=== PATIENT | male | born 1955 | race Caucasian/White ===

== ENCOUNTER 2020-07-02 09:06 | Outpatient (CLI) | payer MEDICARE, SELFPAY ==
--- NOTE | ~2020-07-02 | XR_ITS ---
XR knee LT 3V 07/02/2020 09:37 Indication: Left knee pain Procedure: 3 views left knee Comparison: No prior studies for comparison. Findings: Mild osteoarthritis of the left knee. No fracture or traumatic malalignment. No significant joint effusion. No radiopaque foreign bodies. Impression: 1: Mild osteoarthritis of the left knee. Reviewed, dictated and finalized at location A. Impression: 1: Mild osteoarthritis of the left knee.
--- NOTE | ~2020-07-02 | XR_ITS ---
XR knee RT 3V DATE: 07/02/2020 09:37 INDICATION: Right knee pain TECHNIQUE: AP, lateral, sunrise views COMPARISON: None FINDINGS: No fracture or dislocation or joint effusion. No periosteal reaction or bone destruction. J oint spaces are well preserved. No radiopaque intra-articular loose body or chondrocalcinosis. IMPRESSION: Negative Reviewed, dictated and finalized at location A. IMPRESSION: Negative
== END 2020-07-02 09:07 | disposition home or self-care (01) ==
LOC: ANHIMG 09:14
PROVIDERS: PCP Internal Medicine; Visit Provider Internal Medicine
DX: M17.12 Unilateral primary osteoarthritis, left knee (principal); M25.561 Pain in right knee
CPT/HCPCS: 73562

== ENCOUNTER 2020-07-09 10:39 | Outpatient (CLI) | payer MEDICARE, SELFPAY ==
--- NOTE | ~2020-07-09 | US_ITS ---
US retroperitoneal comp 07/09/2020 11:22 Procedure: Realtime transabdominal ultrasound of the kidneys and bladder. Indication: Chronic kidney disease Comparison: No prior studies for comparison. Findings: Renal echotexture is normal bilaterally without hydronephrosis or renal calculus.. There is a 7.8 cm cyst of the left kidney at the lower pole. The right kidney measures 11 cm and left kidney measures 11.1 cm. Bladder within normal limits. Impression: 1: 7.8 cm left renal cyst. Reviewed, dictated and finalized at location B. Impression: 1: 7.8 cm left renal cyst.
== END 2020-07-09 10:40 | disposition home or self-care (01) ==
LOC: ANHIMG 10:47
PROVIDERS: PCP Internal Medicine; Visit Provider Internal Medicine
DX: N18.9 Chronic kidney disease, unspecified (principal); N28.1 Cyst of kidney, acquired
CPT/HCPCS: 76770

== ENCOUNTER 2021-07-24 16:14 | Outpatient (CLI) | payer MEDICARE, SELFPAY ==
--- NOTE | ~2021-07-24 | US_ITS ---
EXAMINATION: US renal BI DATE: 07/24/2021 16:56 INDICATION: Chronic kidney disease TECHNIQUE: Multiple grayscale and Doppler ultrasound images of the kidneys were obtained. COMPARISON: 07/09/2020 FINDINGS: The right kidney measures 11.2 x 4.2 x 5.9 cm. The left kidney measures 13.2 x 6.0 x 6.0 cm and contains an 8.1 cm cyst. The kidneys demonstrate normal parenchymal echogenicity. Prostatomegaly is noted. There is no hydronephrosis. The bladder is normal. IMPRESSION: 1. Unremarkable kidneys without hydronephrosis. Reviewed, dictated and finalized at location A.
== END 2021-07-24 16:15 | disposition home or self-care (01) ==
LOC: ANHIMG 16:18
PROVIDERS: PCP Internal Medicine; Visit Provider Internal Medicine Nephrology
DX: N18.31 Chronic kidney disease, stage 3a (principal)
CPT/HCPCS: 76775

== ENCOUNTER 2021-08-08 09:41 | Outpatient (CLI) | payer MEDICARE, SELFPAY ==
--- NOTE | ~2021-08-08 | US_ITS ---
EXAMINATION: US abdomen complete EXAM DATE: 08/08/2021 10:23 INDICATION: R10.9 - Unspecified abdominal pain. LLQ pain. TECHNIQUE: Multiple grayscale and Doppler images of the complete abdomen were obtained (by a technolo gist who performed the scan) and subsequently reviewed. Correlation made to kidney ultrasound . FINDINGS: The abdominal aorta is normal in caliber. Visualized portion IVC is patent. The pancreatic head a nd body are normal in appearance. The pancreatic tail is not visualized. The liver has normal echogenicity and contour. There are no focal liver lesions identified. There is no evidence of intrahepatic biliary duct dilation. Portal venous flow was seen in the hepatopedal , normal direction and has normal Doppler waveform. Common bile duct measures 5 mm, which is normal. The gallbladder wall is normal in thickness, with ex pected amount of distention. No sonographic evidence of pericholecystic fluid. There is gallbladder adenomyomatosis. There may be some echogenic debris, but no shadowing, no cholelithiasis. Some gallb ladder wall thickening at the fundus, probably pharyngeal cap. Technologist performing exam reports patient did not demonstrate sonographic Kan's sign. Please note that this sign is less reliable i n patients who have received pain medication. Right kidney: There is normal contour and echogenicity. It measures 11.7 x 5.0 x 5.4 centimeters. There are no focal renal lesions identified. There is no hydronephrosis. Left kidney: There is normal contour and echogenicity. It measures 12.8 x 5.6 x 6.7 centimeters. Th ere is left perihilar cyst measuring up to 8 cm. There is no hydronephrosis. The spleen measures 11.8 centimeters and is morphologically normal. IMPRESSION: 1. Gallbladder adenomyomatosis, pharyngeal cap. 2. Large left renal perihilar cyst. Reviewed, dictated and finalized at location B.
== END 2021-08-08 09:42 | disposition home or self-care (01) ==
LOC: ANHIMG 09:44
PROVIDERS: PCP Internal Medicine; Visit Provider Internal Medicine
DX: R10.9 Unspecified abdominal pain (principal); D13.5 Benign neoplasm of extrahepatic bile ducts; N28.1 Cyst of kidney, acquired
CPT/HCPCS: 76700

== ENCOUNTER 2021-09-08 01:17 | Day surgery (SDC) | payer MEDICARE, SELFPAY ==
[2021-08-26 11:50] VITALS: BMI 27.1
[2021-09-08 06:14] VITALS: BP 111/63; PULSE 73; RESP 18; TEMP 36.1; O2SAT 95
[2021-09-08] MEDS: LACTATED RINGERS 1,000 ML 150 ML IV CONT (06:17)
--- NOTE | 2021-09-08 07:04 | WPDANESEPPF ---
Anes - Initial Pre Proc Eval Procedure: Operation Date: 09/08/21 07:30 Proposed Procedures p Screening Colonoscopy - Billy Buck MD Date/Time: 09/08/21 07:04 Surgeon: Billy Buck MD Pre Op Diagnosis: neoplasm screening Patient Data Age: 65 Gender: M Height: 1.83 m Weight: 99.3 kg Last Vital Signs Temp 36.1 C L 09/08/21 06:14 Pulse 73 09/08/21 06:14 Resp 18 09/08/21 06:14 BP 111/63 09/08/21 06:14 Pulse Ox 95 09/08/21 06:14 Allergies Allergy/AdvReac Type Severity Reaction Status Date / Time paroxetine Allergy Mild RASH Verified 09/08/21 06:11 Penicillins Allergy Mild Hives Verified 09/08/21 06:11 Home Medications Medication Instructions Recorded Confirmed Type multivitamin 1 tablet PO DAILY 10/26/19 09/08/21 History ascorbic acid (vitamin C) 500 mg 500 mg PO DAILY 01/03/21 09/08/21 History tablet calcium carbonate 500 mg calcium 500 mg PO DAILY 01/03/21 09/08/21 History (1,250 mg) tablet zinc 50 mg tablet 50 mg PO DAILY 07/18/21 09/08/21 History aspirin [Adult Low Dose Aspirin] 81 mg PO DAILY 08/26/21 09/08/21 History carvedilol 12.5 mg PO BID 08/26/21 09/08/21 History levocetirizine [Xyzal] 5 mg PO DAILY 08/26/21 09/08/21 History lisinopril 20 mg PO BID 08/26/21 09/08/21 History rosuvastatin 20 mg PO DAILY 08/26/21 09/08/21 History umeclidinium-vilanterol [Anoro 1 inh INHALATION DAILY 08/26/21 09/08/21 History Ellipta] Patient hx anesthesia problems: none Family hx anesthesia problems: none Results Review: All pre-operative results and documents have been reviewed as part of the pre-operative evaluation. [facility] Past Medical History Medical History (Updated 09/08/21 @ 07:05 by Trevon Braden MD) Anxiety Chronic obstructive pulmonary disease CKD (chronic kidney disease) Esophageal web Essential hypertension History of tobacco use Hyperlipidemia IFG (impaired fasting glucose) Obesity (BMI 30-39.9) Osteoarthritis Pulmonary emphysema Recurrent major depressive disorder, in partial remission Family History Family History Sibling Family history of multiple sclerosis Mother Family history of primary malignant neoplasm of liver Patient's mother is Father Family history of congestive heart failure Patient's father is Social History Social History (Updated 07/18/21 @ 08:28 by Nika Gastelum CNA) Smoking packs per day: 1 Smoking cigarettes per day: 20.0 Years smoked: 26 Smoking pack-years: 26.00 Smoking status: Former smoker Tobacco type: cigarettes Second hand tobacco smoke exposure: Yes Smoking end date: 10/25/09 Alcohol intake: current Drinks per week: 4 Substance use: never Substance use type: does not use Living arrangements: with family Spiritual care concerns: No Anes - Eval Final PreProcedure Day of Procedure 09/08/21 07:04 Patient weight: obese Heart: regular rate and rhythm Lungs: clear to auscultation and normal air movement Airway: Mallampati scale class II Neurological: alert and oriented Last oral intake: >/= 8 hours ASA classification: III Emergent: no Anesthetic plan: proceed Anesthesia type and monitoring: general GIVS Results Review: All pre-operative results and documents have been reviewed as part of the pre-operative evaluation. Informed Consent: The patient's anesthetic plan and its attendant risks and benefits were discussed with the patient/family/POA. Questions were solicited and answers provided to the satisfaction of the patient/family/POA.
--- NOTE | 2021-09-08 07:26 | PM.HPGS ---
History of Present Illness History of Present Illness Consent: Risks, benefits, and alternatives have been discussed and questions answered. Patient agrees to proceed with procedure. Chief complaint: neoplasm screening Narrative: Vic Garcia is a 65 year old male here for colon screening, last one 10 years ago. Review of Systems Constitutional: Constitutional: Denies headache(s) and Denies weakness Eyes: Eyes: Denies blurry vision ENT: Reports Normal hearing present, Denies headache(s) and Denies neck pain Cardiovascular: Cardiovascular: Denies chest pain and Denies dyspnea Respiratory: Respiratory: Denies dyspnea Gastrointestinal: Gastrointestinal: Reports no additional gastrointestinal complaints Genitourinary: Genitourinary: Denies dysuria Musculoskeletal: Musculoskeletal: Denies neck pain Integumentary/Breasts: Skin/Breast: Denies dry skin Neurologic: Reports Normal hearing present, Denies headache(s) and Denies weakness Psychiatric: Psychiatric: Denies anxiety Endocrine: Endocrine: Denies change in body appearance Hematologic/Lymphatic: Hematologic/Lymphatic: Denies easy bleeding Allergic/Immunologic: Allergic/Immunologic: Denies urticaria PMFSH Past Medical History Medical History (Updated 09/08/21 @ 07:26 by Billy Buck MD) Anxiety Chronic obstructive pulmonary disease CKD (chronic kidney disease) Colon cancer screening Esophageal web Essential hypertension History of tobacco use Hyperlipidemia IFG (impaired fasting glucose) Obesity (BMI 30-39.9) Osteoarthritis Pulmonary emphysema Recurrent major depressive disorder, in partial remission Family History Family History Sibling Family history of multiple sclerosis Mother Family history of primary malignant neoplasm of liver Patient's mother is Father Family history of congestive heart failure Patient's father is Social History Social History (Updated 07/18/21 @ 08:28 by Nika Gastelum CNA) Smoking packs per day: 1 Smoking cigarettes per day: 20.0 Years smoked: 26 Smoking pack-years: 26.00 Smoking status: Former smoker Tobacco type: cigarettes Second hand tobacco smoke exposure: Yes Smoking end date: 10/25/09 Alcohol intake: current Drinks per week: 4 Substance use: never Substance use type: does not use Living arrangements: with family Spiritual care concerns: No Meds Home Medications and Allergies Home Medications Medication Instructions Recorded Confirmed Type multivitamin 1 tablet PO DAILY 10/26/19 09/08/21 History ascorbic acid (vitamin C) 500 mg 500 mg PO DAILY 01/03/21 09/08/21 History tablet calcium carbonate 500 mg calcium 500 mg PO DAILY 01/03/21 09/08/21 History (1,250 mg) tablet zinc 50 mg tablet 50 mg PO DAILY 07/18/21 09/08/21 History aspirin [Adult Low Dose Aspirin] 81 mg PO DAILY 08/26/21 09/08/21 History carvedilol 12.5 mg PO BID 08/26/21 09/08/21 History levocetirizine [Xyzal] 5 mg PO DAILY 08/26/21 09/08/21 History lisinopril 20 mg PO BID 08/26/21 09/08/21 History rosuvastatin 20 mg PO DAILY 08/26/21 09/08/21 History umeclidinium-vilanterol [Anoro 1 inh INHALATION DAILY 08/26/21 09/08/21 History Ellipta] Allergies Allergy/AdvReac Type Severity Reaction Status Date / Time paroxetine Allergy Mild RASH Verified 09/08/21 06:11 Penicillins Allergy Mild Hives Verified 09/08/21 06:11 Vital Signs Vital Signs - 24 hr 09/08/21 06:14 Temperature 96.9 F L Pulse Rate 73 Respiratory Rate 18 Blood Pressure 111/63 Pulse Oximetry 95 Exam Const: General: comfortable and no acute distress HENMT: General nose exam: Normal nares present Eyes: General: appearance normal, both eyes and all related structures Neck: Neck: no JVD Resp: Auscultation: clear to auscultation bilaterally Cardio: Rate: regular rate Rhythm: regular rhythm GI:
[2021-09-08 07:49] VITALS: BP 104/57; PULSE 64; RESP 19; O2SAT 96
[2021-09-08 07:59] VITALS: BP 103/70; PULSE 62; RESP 16; O2SAT 98
[2021-09-08 08:09] VITALS: BP 106/62; PULSE 60; RESP 18; O2SAT 98
== END 2021-09-08 08:23 | disposition home or self-care (01) ==
PROVIDERS: PCP Internal Medicine; Visit Provider Internal Medicine Gastroenterology
PROC: 0DJD8ZZ Inspection of Lower Intestinal Tract, Via Natural or Artificial Opening Endoscopic (ICD-10-PCS; CPT 45378; principal; 2021-09-08 07:30)
DX: Z12.11 Encounter for screening for malignant neoplasm of colon (principal); K57.30 Diverticulosis of large intestine without perforation or abscess without bleeding; D12.4 Benign neoplasm of descending colon; K64.8 Other hemorrhoids; I12.9 Hypertensive chronic kidney disease with stage 1 through stage 4 chronic kidney disease, or unspecified chronic kidney disease; N18.9 Chronic kidney disease, unspecified; E78.5 Hyperlipidemia, unspecified; J44.9 Chronic obstructive pulmonary disease, unspecified; F41.9 Anxiety disorder, unspecified; F32.4 Major depressive disorder, single episode, in partial remission; Z87.891 Personal history of nicotine dependence; Z79.82 Long term (current) use of aspirin; E66.9 Obesity, unspecified; Z68.29 Body mass index [BMI] 29.0-29.9, adult
CPT/HCPCS: 45380; 45385; 88305; J2001; J2704; J7120

== ENCOUNTER 2022-01-23 10:19 | Outpatient (CLI) | payer MEDICARE, SELFPAY ==
--- NOTE | ~2022-01-23 | XR_ITS ---
XR lumbar spine 6V w bending DATE: 01/23/2022 10:42 INDICATION: Low back pain TECHNIQUE: AP, lateral, coned lateral lumbosacral views. Bilateral oblique views. Weightbearing flexi on and extension lateral views COMPARISON: None FINDINGS: There is normal alignment of the lumbar spine. There is no instability on flexion or extens ion. There is mild to moderate degenerative disc disease at L1-2, L2-3 and L3-4 primarily No fracture or bone destruction, spondylolysis or spondylolisthesis. The lumbar pedicles are intact. The sacroiliac joints are normal. IMPRESSION: Mild to moderate degenerative disc disease Reviewed, dictated and finalized at location A.
== END 2022-01-23 10:20 | disposition home or self-care (01) ==
PROVIDERS: PCP Internal Medicine; Visit Provider Internal Medicine
DX: G89.29 Other chronic pain (principal); M54.50 Low back pain, unspecified; M51.36 Other intervertebral disc degeneration, lumbar region
CPT/HCPCS: 72114

== ENCOUNTER 2022-02-11 10:38 | Outpatient (CLI) | payer MEDICARE, SELFPAY ==
--- NOTE | ~2022-02-11 | XR_ITS ---
EXAMINATION: XR chest 2V EXAM DATE: 02/11/2022 11:00 INDICATION: J44.9 - Extreme Sob X 2days. Former Smoker. Hx Copd TECHNIQUE: Frontal and lateral projections of the chest obtained and reviewed. Comparison is made to prior examination from 01/21/2019. FINDINGS: The lungs are clear. There are no pleural effusions. The cardiomediastinal silhouette is within normal limits. There is no pneumothorax suspected. The bones and soft tissues are unremarkab le. IMPRESSION: No acute cardiopulmonary findings. Reviewed, dictated and finalized at location A.
== END 2022-02-11 10:39 | disposition home or self-care (01) ==
PROVIDERS: PCP Internal Medicine; Visit Provider Internal Medicine
DX: J44.9 Chronic obstructive pulmonary disease, unspecified (principal)
CPT/HCPCS: 71046

== ENCOUNTER 2022-07-22 15:43 | Emergency (ER) | payer MEDICARE, SELFPAY ==
--- NOTE | ~2022-07-22 | XR_ITS ---
EXAMINATION: XR chest 2V DATE: 07/22/2022 16:14 INDICATION: Productive cough and congestion TECHNIQUE: PA and lateral views of the chest were obtained. COMPARISON: Chest radiograph dated 02/11/2022 FINDINGS: Again seen is mild hyperexpansion of lungs with increased retrosternal clear space and mild flattenin g of the diaphragm to just but not diagnostic of COPD. No focal airspace opacities, pulmonary edema, pleural effusion or pneumothorax. The cardiomediastinal silhouette is normal. Mild thoracic spondylos is. IMPRESSION: 1. Mild hyperexpansion of the lungs suggestive but not diagnostic of COPD. No acute cardiopulmonary d isease. Reviewed, dictated and finalized at location A. IMPRESSION: 1. Mild hyperexpansion of the lungs suggestive but not diagnostic of COPD. No a cute cardiopulmonary disease.
[2022-07-22 15:51] VITALS: BP 122/80; PULSE 80; RESP 20; TEMP 36.7; O2SAT 97
--- NOTE | 2022-07-22 16:06 | ED.URI ---
HPI - URI/Sore Throat General Chief Complaint: Upper Respiratory Infection Stated Complaint: Congestion,Cough Time Seen by Provider: 07/22/22 16:06 History of Present Illness HPI Narrative: Vic Garcia is a 66 yo male with PMH of COPD, seasomal allergies, HTN, high cholesterol, [facility] fatigue, cough, congestion, coughing up brown mucus that started yesterday. He has COPD and states he has been unable to do a little part-time job that he has because of fatigue and his symptoms. Started yesterday and needed COVID test yesterday; recent quit date for cigarette smoking was 2 years ago Related Data Home Medications Medication Instructions Recorded Confirmed multivitamin 1 tablet PO DAILY 10/26/19 07/22/22 ascorbic acid (vitamin C) 500 mg 500 mg PO DAILY 01/03/21 07/22/22 tablet calcium carbonate 500 mg calcium 500 mg PO DAILY 01/03/21 07/22/22 (1,250 mg) tablet (Calcium 500) zinc 50 mg tablet 50 mg PO DAILY 07/18/21 07/22/22 aspirin 81 mg tablet 81 mg PO DAILY 08/26/21 07/22/22 levocetirizine 5 mg tablet (Xyzal) 5 mg PO DAILY 08/26/21 07/22/22 Allergies Allergy/AdvReac Type Severity Reaction Status Date / Time paroxetine AdvReac Mild RASH Verified 07/22/22 15:56 Penicillins AdvReac Mild Hives Verified 07/22/22 15:56 Review of Systems Review of Systems: CONSTITUTIONAL: Denies fever, chills, sweats. Fatigue EYES: Denies visual changes, redness, discharge. ENT: Denies rhinorrhea, has congestion, has sore throat, otalgia. CARDIOVASCULAR: Denies chest pain, palpitations, edema. RESPIRATORY: Denies dyspnea, wheezing, has cough GASTROINTESTINAL: Denies abdominal pain, nausea, vomiting, diarrhea. GENITOURINARY: Denies dysuria, hematuria, abnormal discharge SKIN: Denies rash or itching. NEUROLOGIC: Denies numbness, or focal weakness. PSYCHIATRIC: Denies anxiety or depression. [facility] Past Medical History Medical History Anxiety Chronic obstructive pulmonary disease CKD (chronic kidney disease) Colon cancer screening Esophageal web Essential hypertension History of tobacco use Hyperlipidemia IFG (impaired fasting glucose) Obesity (BMI 30-39.9) Osteoarthritis Pulmonary emphysema Recurrent major depressive disorder, in partial remission Family History Family History Sibling Family history of multiple sclerosis Mother Family history of primary malignant neoplasm of liver Patient's mother is Father Family history of congestive heart failure Patient's father is Social History Social History Smoking packs per day: 1 Smoking cigarettes per day: 20.0 Years smoked: 26 Smoking pack-years: 26.00 Smoking status: Former smoker Tobacco type: cigarettes Second hand tobacco smoke exposure: Yes Smoking end date: 10/25/09 Alcohol intake: current Drinks per week: 4 Substance use: never Substance use type: does not use Spiritual care concerns: No Comments At time of signature, I agree with nursing past medical, surgical, social and family history. There is no relevant family history pertinent to the presenting complaint. Exam Narrative: GENERAL: This is a well-nourished, well-developed patient, in mild distress. HEAD: normocephalic, atraumatic. EYES: Sclera clear/white. Vision is grossly intact. EARS: External ears normal, auditory canals clear and without drainage, TMs normal without perforation. Hearing grossly intact. NOSE: External nose normal without nasal discharge, nares without redness, no rhinorrhea. THROAT: Mucous membranes moist, posterior pharynx erythema NECK: Neck supple, non-tender CARDIOVASCULAR: Regular rate and rhythm without murmurs, gallops, or rubs. RESPIRATORY: Diminished to auscultation. Breath sounds equal bilaterally. He has diffuse whee
[2022-07-22 19:40] LABS: SARS-CoV-2 RNA PCR Negative
== END 2022-07-22 16:38 | disposition home or self-care (01) ==
PROVIDERS: Emergency Provider Nurse Practitioner; PCP Internal Medicine
DX: J44.1 Chronic obstructive pulmonary disease with (acute) exacerbation (principal); N18.9 Chronic kidney disease, unspecified; I12.9 Hypertensive chronic kidney disease with stage 1 through stage 4 chronic kidney disease, or unspecified chronic kidney disease; E78.5 Hyperlipidemia, unspecified; Z79.82 Long term (current) use of aspirin; Z87.891 Personal history of nicotine dependence; Z20.822 Contact with and (suspected) exposure to COVID-19
CPT/HCPCS: 71046; 87426; 99213; C9803; G0463; U0003; U0005

== ENCOUNTER 2022-12-06 08:33 | Emergency (ER) | payer MEDICARE, SELFPAY ==
[2022-12-06 08:44] VITALS: BP 124/79; PULSE 90; RESP 20; TEMP 36.3; O2SAT 97
[2022-12-06 08:46] VITALS: BP 124/79; PULSE 90; RESP 20; TEMP 36.3; O2SAT 97
--- NOTE | 2022-12-06 09:00 | ED.URI ---
HPI - URI/Sore Throat General Chief Complaint: Upper Respiratory Infection Stated Complaint: Sore Throat,Congestion Time Seen by Provider: 12/06/22 09:00 Source: patient Mode of arrival: ambulatory Limitations: no limitations History of Present Illness HPI Narrative: 67-year-old male presents with nasal congestion, cough, sore throat, fatigue, headaches, body aches and chills for 5 days. Thinks he had a low-grade fever yesterday. Reports my head is relief old . Denies nausea vomiting diarrhea. No chest pain or shortness of breath. Patient taking Mucinex with decongestant and Loris cough drops. All systems reviewed and negative except as noted above. Related Data Home Medications Medication Instructions Recorded Confirmed multivitamin 1 tablet PO DAILY 10/26/19 12/06/22 ascorbic acid (vitamin C) 500 mg 500 mg PO DAILY 01/03/21 12/06/22 tablet calcium carbonate 500 mg calcium 500 mg PO DAILY 01/03/21 12/06/22 (1,250 mg) tablet (Calcium 500) zinc 50 mg tablet 50 mg PO DAILY 07/18/21 12/06/22 aspirin 81 mg tablet 81 mg PO DAILY 08/26/21 12/06/22 levocetirizine 5 mg tablet (Xyzal) 5 mg PO DAILY 08/26/21 12/06/22 Allergies Allergy/AdvReac Type Severity Reaction Status Date / Time paroxetine AdvReac Mild RASH Verified 12/06/22 08:44 Penicillins AdvReac Mild Hives Verified 12/06/22 08:44 Review of Systems Review of Systems: CONSTITUTIONAL: reports fever, chills, or sweats. EYES: Denies visual changes, redness, or discharge. ENT: Reports rhinorrhea, congestion, sore throat, or otalgia. CARDIOVASCULAR: Denies chest pain, palpitations, or edema. RESPIRATORY: reports cough. Denies dyspnea. GASTROINTESTINAL: Denies abdominal pain, nausea, vomiting, or diarrhea. GENITOURINARY: Denies dysuria or hematuria. SKIN: Denies rash or itching. MUSCULOSKELETAL: Denies back pain, joint pain. Reports myalgia. NEUROLOGIC: Denies headache, numbness, or weakness. PSYCHIATRIC: Denies anxiety or depression. All other systems reviewed are negative, except as documented in HPI. [facility] Past Medical History Medical History Anxiety Chronic obstructive pulmonary disease CKD (chronic kidney disease) Colon cancer screening Esophageal web Essential hypertension History of tobacco use Hyperlipidemia IFG (impaired fasting glucose) Obesity (BMI 30-39.9) Osteoarthritis Pulmonary emphysema Recurrent major depressive disorder, in partial remission Surgical History Surgical History History of appendectomy Family History Family History Sibling Family history of multiple sclerosis Mother Family history of primary malignant neoplasm of liver Patient's mother is Father Family history of congestive heart failure Patient's father is Social History Social History Smoking packs per day: 1 Smoking cigarettes per day: 20.0 Years smoked: 26 Smoking pack-years: 26.00 Smoking status: Former smoker Tobacco type: cigarettes Second hand tobacco smoke exposure: Yes Smoking end date: 10/25/09 Alcohol intake: current Drinks per week: 4 Substance use: never Substance use type: does not use Lack of Transportation: No Lack of Food: Never True Current Housing: I Have Housing Concerned About Future Housing: No Difficulty Paying Gas/Electric Bills: No Difficulty Paying for Meds: No Currently Unemployed: No Education: High School Diploma/GED Difficulty w/ Childcare or Family Care: No Living arrangements: with family Spiritual care concerns: No Comments At time of signature, agree with nursing past medical, surgical, social and family history. There is no relevant family history pertinent to the presenting complaint. Exam Narrative: [place]
== END 2022-12-06 09:10 | disposition home or self-care (01) ==
PROVIDERS: Emergency Provider Nurse Practitioner Family; PCP Internal Medicine
DX: J06.9 Acute upper respiratory infection, unspecified (principal); I12.9 Hypertensive chronic kidney disease with stage 1 through stage 4 chronic kidney disease, or unspecified chronic kidney disease; N18.9 Chronic kidney disease, unspecified; E78.5 Hyperlipidemia, unspecified; J43.9 Emphysema, unspecified; Z87.891 Personal history of nicotine dependence; Z79.82 Long term (current) use of aspirin; Z20.822 Contact with and (suspected) exposure to COVID-19
CPT/HCPCS: 87426; 87804; 99213; C9803; G0463

== ENCOUNTER 2022-12-19 10:07 | Emergency (ER) | payer MEDICARE, SELFPAY ==
--- NOTE | ~2022-12-19 | XR_ITS ---
XR chest 2V DATE: 12/19/2022 10:29 INDICATION: Cough, shortness of breath. History of COPD. TECHNIQUE: 2 views COMPARISON: 07/22/2022 2 view chest FINDINGS: Heart size. No hilar or mediastinal enlargement. There is patchy infiltrate in the right mid-upper lung, new since 07/14/2022, likely due to right uppe r lobe pneumonia. No infiltrate or atelectasis is suggested in the left lung base as well. No pleural effusion or pulmonary vascular congestion or pneumothorax. Bilateral hyperinflation, suggesting COPD IMPRESSION: Patchy right upper lobe pulmonary infiltrate Mild infiltrate or atelectasis is suggested at the left lung base Bilateral hyperinflation, suggesting COPD Reviewed, dictated and finalized at location A. UCT STEWARD
[2022-12-19 10:14] VITALS: BP 116/60; PULSE 88; RESP 24; TEMP 37.1; O2SAT 96
--- NOTE | 2022-12-19 10:43 | ED.URI ---
HPI - URI/Sore Throat General Chief Complaint: Upper Respiratory Infection Stated Complaint: Congestion,SOB Time Seen by Provider: 12/19/22 10:34 Source: patient and old records reviewed Mode of arrival: ambulatory Limitations: no limitations History of Present Illness HPI Narrative: Patient presents today complaining of 5-6 day history of cough, congestion, shortness of breath with exertion. Reports brown sputum with coughing. Patient was seen here at [facility] on 12/06/2022 and diagnosed with a URI and subsequently prescribed doxycycline which she finished. States symptoms had almost completely resolved after the antibiotics, then returned this week. Denies fever. He has been taking Mucinex with some relief. History of COPD. He is a former smoker. Review of patient's chart shows he can have some shortness of breath with strenuous exertion at baseline,, but states at this time he is short of breath with little exertion. Related Data Home Medications Medication Instructions Recorded Confirmed multivitamin 1 tablet PO DAILY 10/26/19 12/19/22 ascorbic acid (vitamin C) 500 mg 500 mg PO DAILY 01/03/21 12/19/22 tablet calcium carbonate 500 mg calcium 500 mg PO DAILY 01/03/21 12/19/22 (1,250 mg) tablet (Calcium 500) zinc 50 mg tablet 50 mg PO DAILY 07/18/21 12/19/22 aspirin 81 mg tablet 81 mg PO DAILY 08/26/21 12/19/22 levocetirizine 5 mg tablet (Xyzal) 5 mg PO DAILY 08/26/21 12/19/22 Allergies Allergy/AdvReac Type Severity Reaction Status Date / Time paroxetine AdvReac Mild RASH Verified 12/19/22 10:16 Penicillins AdvReac Mild Hives Verified 12/19/22 10:16 Review of Systems Review of Systems: CONSTITUTIONAL: Denies body aches, fever, chills, or sweats. EYES: Denies visual changes, redness, or discharge. ENT: Denies rhinorrhea, sore throat, or otalgia.+ congestion CARDIOVASCULAR: Denies chest pain, palpitations, or edema. RESPIRATORY: + cough, shortness of breath GASTROINTESTINAL: Denies abdominal pain, nausea, vomiting, or diarrhea. GENITOURINARY: Denies dysuria or hematuria. SKIN: Denies rash, itching, or wounds. MUSCULOSKELETAL: Denies back pain, joint pain, or myalgia. NEUROLOGIC: Denies headache, numbness, tingling, or weakness. PSYCH: Denies depression or anxiety. [facility] Past Medical History Medical History Anxiety Chronic obstructive pulmonary disease CKD (chronic kidney disease) Colon cancer screening Esophageal web Essential hypertension History of tobacco use Hyperlipidemia IFG (impaired fasting glucose) Obesity (BMI 30-39.9) Osteoarthritis Pulmonary emphysema Recurrent major depressive disorder, in partial remission Surgical History Surgical History History of appendectomy Family History Family History Sibling Family history of multiple sclerosis Mother Family history of primary malignant neoplasm of liver Patient's mother is Father Family history of congestive heart failure Patient's father is Social History Social History Smoking packs per day: 1 Smoking cigarettes per day: 20.0 Years smoked: 26 Smoking pack-years: 26.00 Smoking status: Former smoker Tobacco type: cigarettes Second hand tobacco smoke exposure: Yes Smoking end date: 10/25/09 Alcohol intake: current Drinks per week: 4 Substance use: never Substance use type: does not use Lack of Transportation: No Lack of Food: Never True Current Housing: I Have Housing Concerned About Future Housing: No Difficulty Paying Gas/Electric Bills: No Difficulty Paying for Meds: No Currently Unemployed: No Education: High School Diploma/GED Difficulty w/ Childcare or Family Care: No Living arrangements: with f
== END 2022-12-19 10:55 | disposition home or self-care (01) ==
PROVIDERS: Emergency Provider Nurse Practitioner; PCP Internal Medicine
DX: J44.1 Chronic obstructive pulmonary disease with (acute) exacerbation (principal); Z87.891 Personal history of nicotine dependence; I12.9 Hypertensive chronic kidney disease with stage 1 through stage 4 chronic kidney disease, or unspecified chronic kidney disease; N18.9 Chronic kidney disease, unspecified; E78.5 Hyperlipidemia, unspecified; E66.9 Obesity, unspecified; Z68.27 Body mass index [BMI] 27.0-27.9, adult; Z79.82 Long term (current) use of aspirin; R73.01 Impaired fasting glucose
CPT/HCPCS: 71046; 99213; G0463

== ENCOUNTER 2023-04-07 11:40 | Emergency (ER) | payer MEDICARE, SELFPAY | END 2023-04-07 12:20 | disposition home or self-care (01) | LOC: EXPTROY 19:21 | PROVIDERS: Emergency Provider Nurse Practitioner Family; PCP Family Medicine | DX: J44.1 Chronic obstructive pulmonary disease with (acute) exacerbation (principal); Z87.891 Personal history of nicotine dependence | CPT/HCPCS: 99213; G0463 ==

== ENCOUNTER → 2023-08-17 14:21 | Outpatient (CLI) | payer MEDICARE, SELFPAY ==
--- NOTE | ~2023-08-17 | MR_ITS ---
MRI of the right ankle Clinical history: Posterior tibial tendinitis Technique: Coronal proton-density and proton-density fat-sat images, axial proton-density and proton- density fat-sat images, and sagittal proton-density and proton-density fat-sat images were acquired. Findings: Syndesmotic ligaments are intact. Anterior and posterior talofibular ligaments, and calcane ofibular ligament are intact. Deltoid ligament is intact. Medial flexor tendons, peroneal tendons, anterior extensor tendons, and Achilles tendon are intact. T here is mild tenosynovitis of the very proximal tibialis posterior tendon sheath region, near the cee tendinous junction. There is amorphous marrow edema extensive involving the medial talar head/neck. There is focal degene rative change at the second tarsometatarsal joint. Remaining joint spaces and bone marrow signals are unremarkable. No osteochondral lesion of the talar dome evident. Plantar fascia is intact. Questionable mild edematous change in the sinus Tarsi. No soft tissue mass evident. Impression: Tenosynovitis of the very proximal tibialis posterior tendon sheath. Extensive amorphous marrow edema of the medial talar head/neck. This could reflect bone contusion karen rick other reactive marrow edema or stress response. Correlate for injury. Possible mild edematous change in the sinus Tarsi. Correlate for sinus Tarsi syndrome. Degenerative change at the second TMT joint. Reviewed, dictated and finalized at [facility]. Impression: Tenosynovitis of the very proximal tibialis posterior tendon sheath. Extensive amorphous marrow edema of the medial talar head/neck. This could refl ect bone contusion versus other reactive marrow edema or stress response. Corre late for injury. Possible mild edematous change in the sinus Tarsi. Correlate for sinus Tarsi sy ndrome. Degenerative change at the second TMT joint.
== END ==
PROVIDERS: PCP Podiatrist Foot & Ankle Surgery; Visit Provider Podiatrist Foot & Ankle Surgery
DX: M76.821 Posterior tibial tendinitis, right leg (principal); M19.071 Primary osteoarthritis, right ankle and foot; R60.9 Edema, unspecified
CPT/HCPCS: 73721

== ENCOUNTER 2023-12-08 12:12 | Outpatient (CLI) | payer MEDICARE, SELFPAY ==
--- NOTE | 2023-12-08 12:23 | ECG_ITS ---
Measurements Intervals [place] Rate: 64 P: 55 IL: 170 QRS: -34 QRSD: 140 T: 26 QT: 370 QTc: 383 Interpretive Statements SINUS RHYTHM MARKED LEFT AXIS DEVIATION [QRS AXIS < -30] RIGHT BUNDLE BRANCH BLOCK [120+ ms QRS DURATION, UPRIGHT V1, 40+ ms S IN I/aVL/V4/V5/V6] ABNORMAL ECG NO PREVIOUS ECG AVAILABLE FOR COMPARISON Electronically Signed On 12-08-2023 13:20:02 PROBLEM MANAGER by Cecil Roman M.D.
== END 2023-12-08 12:13 | disposition home or self-care (01) ==
PROVIDERS: PCP Family Medicine; Visit Provider Podiatrist Foot & Ankle Surgery
DX: I10 Essential (primary) hypertension (principal); Z01.818 Encounter for other preprocedural examination; I45.10 Unspecified right bundle-branch block
CPT/HCPCS: 93005

== ENCOUNTER 2023-12-10 00:01 | Day surgery (SDC) | payer MEDICARE, SELFPAY ==
[2023-12-02 11:11] VITALS: BMI 26.7
--- NOTE | 2023-12-02 11:30 | PC.NURSE ---
PRE-OP INSTRUCTIONS, PLEASE READ CAREFULLY Report to the Outpatient Waiting Room, entrance under the green pavilion located off [facility], at time _0830_ on date _12/10/23_. Planned Procedure Time: _1030_. Time changes happen often and if your time is changed the preop area will call you the afternoon before. - You and your visitor will be asked to self-screen and do not enter if you have any COVID symptoms. - A mask is optional within the hospital at this time. Patients may have clear liquids (water, carbonated beverages, clear teas, apple juice) until 3 hours prior to surgery with a maximum of 20 ounces. - No food from midnight until time of surgery Take the following medications with a SIP of water the morning of surgery: _CARVEDILOL_ DO NOT STOP ANY OF YOUR OTHER PRESCRIPTION MEDICATIONS PRIOR TO SURGERY ?EXCEPT THE FOLLOWING Medications to discontinue per DR. SMITH - _ASPIRIN 7 DAYS PRIOR TO SURGERY (PER PATIENT), Date to take last dose 12/02/23_ Medications to discontinue per ANESTHESIA -_MULTIVITAMIN AND SUPPLEMENTS 3 DAYS PRIOR TO SURGERY, Date to take last dose 12/06/23_ Please no make-up, nail irish, hairspray, perfume, deodorant, or body powder the day of surgery. No jewelry (including any body piercings) or valuables the day of surgery, leave them at home. Please take a shower or bath the night before, or the morning of, surgery with an antibacterial soap. Wear comfortable, loose fitting clothing. - Jewelry must be removed prior to entering the operating room. Rings and piercings that are not removed may be cut off. - The hospital will not accept responsibility for valuables. - Please leave all valuables, including medications, at home the day of surgery. If you are going home after surgery, a licensed lease purchase truck driver must drive you home. - NO public transportation without another adult if you receive anesthesia. - We recommend that an adult stay with you for 24 hours following discharge. - We also recommend that you do not drive, make important decision, drink alcoholic beverages, or take any drugs that were not prescribed by your health care provider for at least 24 hours after your discharge time. Follow any additional instructions given to you from your surgeon. If you or anyone in your household have experienced Covid symptoms in the past week, please notify your surgeon or the nurse liaison at the phone number below for possible testing. Telephone instructions given to _PATIENT_and asked if any additional questions and then verbalized understanding. Patient advised to call surgeon office or pre surgery nurse liaison [phone] if any additional questions.
--- NOTE | 2023-12-09 14:09 | WPDANESEPPF ---
Anes - Initial Pre Proc Eval Procedure: Operation Date: 12/10/23 10:30 Proposed Procedures p Subchondroplasty Right Talus, Fluoroscopic Guidance of Bone Substitute Right Foot - Bill Clarke JR, MD Date/Time: 12/09/23 14:09 Surgeon: Bill Clarke JR, MD Pre Op Diagnosis: Osteochondral Lesion Right Talus Patient Data Age: 68 Gender: M Height: 1.83 m Weight: 89.54 kg Allergies Allergy/AdvReac Type Severity Reaction Status Date / Time paroxetine AdvReac Mild RASH Verified 12/10/23 09:22 Penicillins AdvReac Mild Hives Verified 12/10/23 09:22 Home Medications Medication Instructions Recorded Confirmed Type multivitamin 1 tablet PO DAILY 10/26/19 12/10/23 History ascorbic acid (vitamin C) 500 mg 500 mg PO DAILY 01/03/21 12/10/23 History tablet zinc 50 mg tablet 50 mg PO DAILY 07/18/21 12/10/23 History aspirin 81 mg tablet 81 mg PO DAILY 08/26/21 12/10/23 History levocetirizine 5 mg tablet (Xyzal) 5 mg PO DAILY 08/26/21 12/10/23 History lisinopril 20 mg tablet 20 mg PO BID #180 tabs 08/23/23 12/10/23 Rx carvedilol 12.5 mg tablet See Rx Instructions .Route 10/13/23 12/10/23 Rx .COMPLEX #240 tabs rosuvastatin 20 mg tablet 20 mg PO DAILY 10/26/23 12/10/23 History umeclidinium 62.5 mcg-vilanterol See Rx Instructions .Route 11/22/23 12/10/23 Rx 25 mcg/actuation powdr for .COMPLEX #60 ea inhalation (Anoro Ellipta) calcium carbonate 600 mg-vitamin 1 tablet PO DAILY 12/02/23 12/10/23 History D3 10 mcg (400 unit) tablet (Calcium 600 + D(3)) Patient hx anesthesia problems: none Family hx anesthesia problems: none Results Review: All pre-operative results and documents have been reviewed as part of the pre-operative evaluation. [facility] Past Medical History Medical History Anxiety Chronic obstructive pulmonary disease CKD (chronic kidney disease) Colon cancer screening Esophageal web Essential hypertension History of tobacco use Hyperlipidemia IFG (impaired fasting glucose) Obesity (BMI 30-39.9) Osteoarthritis Pulmonary emphysema Recurrent major depressive disorder, in partial remission Surgical History Surgical History History of appendectomy Family History Family History Sibling Family history of multiple sclerosis Mother Family history of primary malignant neoplasm of liver Patient's mother is Father Family history of congestive heart failure Patient's father is Social History Social History Smoking packs per day: 1 Smoking cigarettes per day: 20.0 Years smoked: 26 Smoking pack-years: 26.00 Smoking status: Former smoker Tobacco type: cigarettes Second hand tobacco smoke exposure: No Smoking end date: 10/25/09 Alcohol intake: current Drinks per week: 4 Substance use: never Substance use type: does not use Lack of Transportation: No Lack of Food: Never True Current Housing: I Have Housing Concerned About Future Housing: No Difficulty Paying Gas/Electric Bills: No Difficulty Paying for Meds: No Currently Unemployed: No Education: High School Diploma/GED Difficulty w/ Childcare or Family Care: No Living arrangements: with family Gender identity (if verbalized by the patient): Male Spiritual care concerns: No Anes - Eval Final PreProcedure Day of Procedure 12/09/23 14:09 Patient weight: overweight Heart: regular rate and rhythm Lungs: clear to auscultation Airway: Mallampati scale class II Neurological: alert and oriented Last oral intake: >/= 8 hours ASA classification: III Emergent: no Anesthetic plan: proceed Anesthesia type and monitoring: general LMA and standard monitoring Results Review: All pre-operative results and documents have been reviewed a
[2023-12-10] VITALS (7 sets, daily range): BP systolic 114–156; BP diastolic 65–79; PULSE 52–67; RESP 16–18; TEMP 36.6–36.8; O2SAT 94–99
--- NOTE | ~2023-12-10 | XR_ITS ---
EXAMINATION: XR surgery orthopedic DATE: 12/10/2023 10:45 CUFF SETTER INDICATION: SUBCHONDROPLASTY RIGHT TALUS BONE SUBSTITUTION . TECHNIQUE: 4 fluoroscopic images of the right foot were obtained during subchondroplasty, right talus bone substitution performed by the surgeon. I was not present in the operating room. Fluoroscopy exp osure time was 25 seconds. Air Kerma 0.3842 mGy. DAP 5.8010 mGym2. COMPARISON: None FINDINGS: Surgical instrument projects over the anterior talus. The anterior portion of a calculi likely relate d to sterile drapes present in one image. No unexpected radiopaque foreign body IMPRESSION: Fluoroscopic documentation of subchondroplasty, right talus bone substitution. Please refer to the op erative note for complete procedural details . Reviewed, dictated and finalized at location K. SETTER IMPRESSION: Fluoroscopic documentation of subchondroplasty, right talus bone substitution. Please refer to the operative note for complete procedural details .
--- NOTE | 2023-12-10 07:11 | WPDHPUPDATE1 ---
History and Physical Update Update Date/Time: 12/10/23 07:11 History and Physical has been reviewed, including an updated exam of the patient. There are NO changes in the patient's condition. Risks, benefits, and alternatives have been discussed and questions answered. Patient agrees to proceed with procedure.
[2023-12-10] MEDS: LACTATED RINGERS 1,000 ML 30 ML IV CONT ×2 (09:35→12:06)
--- NOTE | 2023-12-10 10:29 | WPDANESPNB ---
Anes - Peripheral Nerve Block Date/Time: 12/10/23 10:29 I have discussed with the patient/family/POA the placement of a peripheral nerve block for post-operative pain management, including associated risks, benefits, complications, and side effects. Alternative methods of post-operative analgesia were detailed. Questions were solicited and answers provided to the satisfaction of the patient/family/POA. Time-Out: A pre-procedural Time-Out was completed immediately before starting the procedure and confirmed: Patient Identification, Site, Procedure, Patient Position and the Availability of Requisite Equipment. Clinical Indications: Acute post-operative pain management requested by the operative surgeon. Nerve Block Insertion Note Anes-nerve block: posterior fossa sciatic right and adductor canal right Patient position: supine (for adductor canal) and other (right lateral for popliteal) Skin prep: chlorhexidine Needle: 22 gauge, stimulating, insulated echogenic needle. Needle length: 80 mm Technique: nerve stimulation lost at (mA) (for popliteal lost at 0.2) and ultrasound Injectate: bupivacaine 0.5% with epi 5 mcg/ml (20 mL for popliteal, 10 mL for adductor canal (no epi)) Observations: tolerated well Complications: none Procedure start time:: 1107 Procedure end time:: 1112
[2023-12-10] MEDS: ceFAZolin 2 GM/D5W 50 ML 2 GM/50 ML BAG IVPB (11:20)
--- NOTE | 2023-12-10 12:05 | W.PM.PROC2 ---
Procedure Note - Detailed Date of Procedure 12/10/23 Pre-op Diagnosis Bone marrow edema right talus Post-op Diagnosis Same Procedure Performed 1. Subchondroplasty procedure right talus 2. Fluoroscopic guidance of bone substitute right foot Surgeon Bill Clarke JR, DPM Anesthesia MAC and Regional Indications Painful hindfoot right foot Description of Procedure Procedure in detail: Under mild sedation the Patient was brought into the operating room and placed on the operating table in the supine position. pneumatic high calf tourniquet was placed about the patient's right leg. Following general anesthesia and a popliteal fossa block the foot and distal ankle was scrubbed in the usual aseptic manner. An Esmarch bandage is not used to exsanguinate the patient's right foot and ankle and a pneumatic tourniquet was inflated to 250mmHg. Attention was directed to the medial aspect of the right talus joint where a linear incision 2 cm was made starting 1cm proximal to the talar navicular joint and extending proximally. The incision was medial to the extensor hallucis longus tendon, but lateral to the tibialis anterior tendon. All bleeders were ligated and cauterized as necessary. The dorsal medial aspect of the talar neck was incised. I used the [employer], distal extruding cannula to drill to the medial aspect of the talus near the talar neck along the marked area of high singal intensity on the MRI. Utilizing standard principles and technique I injected 1cc of [employer] subchondroplasty material to the affected area, i was able to visualize the radiodense material fill the medial aspect of the talar neck region where the bone marrow edema was noted. I allowed the material to harden for 10 minutes prior to removal of the cannula. I pulled the cannular and flushed with sterile saline. Next, I used 4.0 Vicryl to reapproximate the subcutaneous layer and 4.0 Monocryl in running subcuticular fashion technique to close the skin. Fluorospic images were obtained in the AP and Lateral views. I dressed the incision with 1/4 inch steri strips, Adaptic, 4x4 Gauze, 4 inch Kerlix and Coban. I deflated the thigh tourniquet and there was an immediate capillary refill noted to all digits of the foot. No bleeding was noticed through the dressing. The patient will have a CAM walker boot applied to the affected lower extremity. The patient did very well with the procedure and the anesthesia. The patient was transferred to the recovery room with vital signs stable and vascular status intact to all toes of the foot. Following a period of postoperative monitoring, the patient will be discharged home on the following written and oral postoperative instructions: 1. The patient should keep the dressing clean, dry, and intact. Use a cast protector bag with showers. 2. The patient will be strictly nonweightbearing with a knee scooter for one week followed by partial weight bearing with a CAM walker boot for an additional 2 weeks. 3. Patient should ice and elevate the right foot when at rest. 4. The patient is to contact Dr. Clarke for all postop care and if any problems arise. 5. Prescriptions were written for Percocet 5/325 dispensed 40 to be taken 1 p.o. q.4-6 hours as needed for severe pain. Furthermore, 14 days of 325 mg aspirin recommended to prevent DVT. Implants D[employer] 3cc of subchondroplasty bone substiture Estimated Blood Loss 1 Drains No Packing No Pathology None sent Complications No immediate complications Condition Stable Disposition Observation
--- NOTE | 2023-12-10 12:24 | PM.OP ---
Procedure Note - Brief Procedure Note - Brief Date of procedure: 12/10/23 Bone marow edema right Talus Procedure performed: 1. Subchondroplasty right talus 2. Fluoroscopic guidance of bone substitute right talus Surgeon: Bill Clarke JR, KHOI
== END 2023-12-10 13:40 | disposition home or self-care (01) ==
PROVIDERS: PCP Family Medicine; Visit Provider Podiatrist Foot & Ankle Surgery
PROC: (CPT 28715; principal; 2023-12-10 10:30)
DX: M19.071 Primary osteoarthritis, right ankle and foot (principal); D75.89 Other specified diseases of blood and blood-forming organs; G89.18 Other acute postprocedural pain; I12.9 Hypertensive chronic kidney disease with stage 1 through stage 4 chronic kidney disease, or unspecified chronic kidney disease; N18.9 Chronic kidney disease, unspecified; E78.5 Hyperlipidemia, unspecified; J43.9 Emphysema, unspecified; F33.41 Major depressive disorder, recurrent, in partial remission; F41.9 Anxiety disorder, unspecified; Z87.891 Personal history of nicotine dependence; Z79.82 Long term (current) use of aspirin; Z79.51 Long term (current) use of inhaled steroids
CPT/HCPCS: 0707T; 64445; 64447; 99199; J0690; J1100; J2250; J2405; J2704; J3010; J7120

== ENCOUNTER 2024-03-15 12:31 | Outpatient (CLI) | payer MEDICARE, SELFPAY ==
--- NOTE | ~2024-03-15 | CT_ITS ---
Noncontrast CT scan of the lumbar spine CLINICAL HISTORY: Back pain TECHNIQUE: Axial noncontrast imaging of the lumbar spine was performed. Sagittal and coronal reformat rich images were constructed. Dose reduction technique was used on this scan by utilizing automated ex posure control and iterative reconstruction technique. The dose-length product (DLP) was 713.06 mGy-c m. FINDINGS: No fracture or subluxation of the lumbar spine identified. Vertebral bodies maintain normal alignment. Intervertebral disc spaces are relatively well-preserved. At L1-L2, there is no significant disc bulge or herniation. There is mild facet arthropathy. No tamie central canal stenosis. There is moderate neural foraminal narrowing bilaterally. At L2-L3, there is minimal disc bulge with mild facet arthropathy. No tamie central canal stenosis. T here is preservation of the neural foramina. At L3-L4, there is minimal disc bulge and mild to moderate facet arthropathy. Mild central canal sten osis/thecal sac compression. There is probable mild left neural foraminal narrowing. Right neural for amen preserved. At L4-L5, disc bulge and moderate facet arthropathy are present, probable mild to moderate central ca nal stenosis/thecal sac compression. Neural foramina are preserved. At L5-S1, there is disc bulge and mild facet arthropathy. No definite central canal stenosis or neura l foraminal narrowing. Paravertebral soft tissues are unremarkable. Prostate gland partially imaged, but markedly enlarged. Impression: [id number] degenerative spondylosis, as detailed above, worst at L3-L4 and L4-L5. Markedly enlarged prostate gland. Reviewed, dictated and finalized at location . Impression: [id number] degenerative spondylosis, as detailed above, worst at L3-L4 an d L4-L5. Markedly enlarged prostate gland.
--- NOTE | ~2024-03-15 | CT_ITS ---
CT of the Abdomen and Pelvis: Indication: Abdominal pain Technique: 2.5 mm axial scans were obtained through the abdomen and pelvis following intravenous adm inistration of 100 cc of Omnipaque 350. Dose reduction technique was used on this scan by utilizing a utomated exposure control and iterative reconstruction technique. The dose-length product (DLP) was 7 13.06 mGy-cm. Findings: Scans through the lung bases demonstrate minimal tree-in-bud opacities at the lingula. The liver, spleen, pancreas, adrenals and right kidney are within normal limits. Probable mild gallbl adder wall thickening, nonspecific. Large left lower pole renal cyst present. There are atherosclerot ic calcifications of the aorta. No lymphadenopathy. No bowel obstruction or bowel wall thickening. There is no evidence to suggest acute appendicitis. Images through the pelvis were performed. Urinary bladder unremarkable. Prostate gland markedly enlar ged. No ascites. Impression: Minimal tree-in-bud opacities the lingula, which could reflect focal small airways infection. Mild gallbladder wall thickening, nonspecific. Markedly enlarged prostate gland. Reviewed, dictated and finalized at location M. Impression: Minimal tree-in-bud opacities the lingula, which could reflect focal small airw ays infection. Mild gallbladder wall thickening, nonspecific. Markedly enlarged prostate gland.
== END 2024-03-15 12:32 | disposition home or self-care (01) ==
LOC: ANHIMG 12:32
PROVIDERS: PCP Family Medicine; Visit Provider Nurse Practitioner Family
DX: M47.896 Other spondylosis, lumbar region (principal); N40.0 Benign prostatic hyperplasia without lower urinary tract symptoms; R91.8 Other nonspecific abnormal finding of lung field; K82.8 Other specified diseases of gallbladder
CPT/HCPCS: 72131; 74177; Q9967

== ENCOUNTER 2024-09-04 16:50 | Emergency (ER) | payer MEDICARE, SELFPAY ==
--- NOTE | 2024-09-04 16:59 | ED_ITS ---
HPI - URI/Sore Throat General Chief Complaint: Upper Respiratory Infection Stated Complaint: cough / congestion / body aches Time Seen by Provider: 09/04/24 16:59 Source: patient, RN notes reviewed and old records reviewed Mode of arrival: ambulatory Limitations: no limitations History of Present Illness HPI Narrative: patient presents with complaints of 2 days of cough, body aches, subjective fever. He reports the cough has been somewhat productive, kept him up throughout most of the night last night. He does have a history of COPD, states that he is compliant with his inhalers. He denies any shortness of breath. He does report that he checked pulse oximetry at home and became worried when he saw that it was 91%. He is in no distress upon arrival, O2 saturation is 96% on room air Related Data Home Medications Medication Instructions Recorded Confirmed multivitamin 1 tablet PO DAILY 10/26/19 09/04/24 ascorbic acid (vitamin C) 500 mg 500 mg PO DAILY 01/03/21 09/04/24 tablet zinc 50 mg tablet 50 mg PO DAILY 07/18/21 09/04/24 aspirin 81 mg tablet 81 mg PO DAILY 08/26/21 09/04/24 levocetirizine 5 mg tablet (Xyzal) 5 mg PO DAILY 08/26/21 09/04/24 calcium 600 mg (as 1 tablet PO DAILY 12/02/23 09/04/24 carbonate)-vitamin D3 10 mcg (400 unit) tablet (Calcium 600 + D(3)) Allergies Allergy/AdvReac Type Severity Reaction Status Date / Time paroxetine AdvReac Mild RASH Verified 09/04/24 16:53 Penicillins AdvReac Mild Hives Verified 09/04/24 16:53 Review of Systems Review of Systems: All systems reviewed & are unremarkable except as noted in HPI and below Constitutional: Constitutional: Reports as per HPI, Reports no additional constitutional complaints, Reports body ache(s), Reports chills and Reports fever(s) ENT: Reports system reviewed and no additional complaints, except as documented Cardiovascular: Cardiovascular: Reports no additional cardiovascular complaints Respiratory: Respiratory: Reports no additional respiratory complaints, Reports chest congestion and Reports cough Gastrointestinal: Gastrointestinal: Reports no additional gastrointestinal complaints PMFSH Past Medical History Medical History Anxiety Chronic obstructive pulmonary disease CKD (chronic kidney disease) Colon cancer screening Esophageal web Essential hypertension History of tobacco use Hyperlipidemia IFG (impaired fasting glucose) Obesity (BMI 30-39.9) Osteoarthritis Pulmonary emphysema Recurrent major depressive disorder, in partial remission Surgical History Surgical History History of appendectomy Family History Family History Sibling Family history of multiple sclerosis Mother Family history of primary malignant neoplasm of liver Patient's mother is Father Family history of congestive heart failure Patient's father is Social History Social History Smoking packs per day: 1 Smoking cigarettes per day: 20.0 Years smoked: 26 Smoking pack-years: 26.00 Smoking status: Former smoker Tobacco type: cigarettes Second hand tobacco smoke exposure: No Smoking end date: 10/25/09 Alcohol intake: current Drinks per week: 4 Substance use: never Substance use type: does not use Do You Feel Safe in your Home?: Yes Lack of Transportation: No Lack of Food: Never True Current Housing: I Have Housing Concerned About Future Housing: No Difficulty Paying Gas/Electric Bills: No Difficulty Paying for Meds: No Currently Unemployed: No Education: High School Diploma/GED Difficulty w/ Childcare or Family Care: No Living arrangements: with family Gender identity (if verbalized by the patient): Male Spiritual care concerns: No Comments At the time of my signature, I reviewed and agree with the nursing past m edical, surgical, social, and family history. There is no relevant family history pertinent to the patient complaint. Exam Const: General: cooperative, no acute distress, alert and awake Orientation/consciousness: oriented to person, oriented to place and oriented to time HENMT: Head: normal to inspection Mouth: Yes moist mucous membranes Resp: Effort & Inspection: normal respiratory effort and able to speak in complete sentences Auscultation: no crackles, no rales, no rhonchi, no wheezes and diminished lung sounds Cardio: Palpation: normal PMI Rate: regular rate Rhythm: regular rhythm Heart sounds: S1 normal heart sound present and S2 normal heart sound present Neuro: General: oriented to person, oriented to place and oriented to time Cranial nerves: Yes CN's II-XII intact bilaterally Psych: Appearance: grossly normal Thought process: Normal thought process present Insight: Good insight present (Psych) Judgement: Good judgement present (Psych) Course Course Level of Care: Express Care Visit Vital Signs Vital signs: Reviewed MDM - URI/Sore Throat MDM Narrative Medical decision making narrative: patient with negative COVID, negative flu. No distress, including respiratory distress. Will treat with steroids, azithromycin for additive anti-inflammatory effect, patient has bronchodilators at home. Follow up primary care provider. Emergency department for new or worse symptoms. Discharge instructions reviewed with patient, as well as provided in writing per nursing staff. The instructions also include specific and strict return/GO TO THE ER as well as f/u information. All questions have been answered, and the patient deny any further questions with discharge and discharge plan. Some parts of this dictation were generated by voice recognition software and may contain typographical and/or grammatical inaccuracies. Differential Diagnosis Differential diagnosis: Likely upper respiratory infection, sinusitis, viral infection and bronchitis Medical Records Attestation: I reviewed the patient's medical records. Discharge Plan Discharge Clinical Impression: Pneumonia Patient Disposition: Home, Self-Care Condition: Stable Instructions: Antibiotic Form, Community Acquired Pneumonia (ED) Additional Instructions: Take medications as prescribed, follow with primary care provider. Emergency department for new or worse symptoms Patient Language: Bolivian Prescriptions: New azithromycin 250 mg tablet See Rx Instructions .ROUTE .COMPLEX Qty: 6 0RF Rx Instructions: For 250 mg dose pack: take 500 mg today (day 1), then 250 mg for 4 days (days 2-5) prednisone 50 mg tablet 50 mg PO DAILY Qty: 5 0RF albuterol sulfate [Ventolin HFA] 90 mcg/actuation HFA aerosol inhaler 2 puff inhalation QID PRN (Reason: shortness of breath or wheezing) Qty: 8.5 0RF No Action ascorbic acid (vitamin C) 500 mg tablet 500 mg PO DAILY zinc 50 mg tablet 50 mg PO DAILY aspirin 81 mg Tablet 81 mg PO DAILY levocetirizine [Xyzal] 5 mg Tablet 5 mg PO DAILY calcium carbonate-vitamin D3 [Calcium 600 + D(3)] 600 mg-10 mcg (400 unit) Tablet 1 tablet PO DAILY multivitamin Tablet 1 tablet PO DAILY tamsulosin 0.4 mg capsule See Rx Instructions .ROUTE .COMPLEX Qty: 90 0RF Dose Instruction: TAKE 1 CAPSULE BY MOUTH DAILY Rx Instructions: TAKE 1 CAPSULE BY MOUTH DAILY carvedilol 12.5 mg tablet See Rx Instructions .ROUTE .COMPLEX Qty: 240 0RF Dose Instruction: TAKE 1 TABLET BY MOUTH EVERY 12 HOURS WITH FOOD Rx Instructions: TAKE 1 TABLET BY MOUTH EVERY 12 HOURS WITH FOOD rosuvastatin 20 mg tablet See Rx Instructions .ROUTE .COMPLEX Qty: 90 0RF Dose Instruction: TAKE 1 TABLET(20 MG) BY MOUTH EVERY DAY Rx Instructions: TAKE 1 TABLET(20 MG) BY MOUTH EVERY DAY lisinopril 20 mg tablet 20 mg PO BID Qty: 180 1RF Rx Instructions: Take 1 tablet by mouth twice daily Anoro Ellipta 62.5-25 mcg/actuation blister with device See Rx Instructions .ROUTE .COMPLEX Qty: 60 0RF Dose Instruction: INHALE 1 PUFF BY MOUTH EVERY DAY Rx Instructions: INHALE 1 PUFF BY MOUTH EVERY DAY Follow-up/Referrals: Chance Marcos MD [Primary Care Provider] - 2 Weeks Time of Disposition: 17:28
[2024-09-04 17:00] VITALS: BP 125/75; PULSE 91; RESP 18; TEMP 36.9; O2SAT 96
[2024-09-04 17:29] LABS: EDCOVIDSCREEN Negative (Negative); EDINFLUASCREEN Negative (Negative); EDINFLUBSCREEN Negative (Negative)
== END 2024-09-04 17:29 | disposition home or self-care (01) ==
PROVIDERS: Emergency Provider Nurse Practitioner Family; PCP Family Medicine
DX: J18.9 Pneumonia, unspecified organism (principal); Z20.822 Contact with and (suspected) exposure to COVID-19; Z87.891 Personal history of nicotine dependence; J44.9 Chronic obstructive pulmonary disease, unspecified; I12.9 Hypertensive chronic kidney disease with stage 1 through stage 4 chronic kidney disease, or unspecified chronic kidney disease; N18.9 Chronic kidney disease, unspecified; E78.5 Hyperlipidemia, unspecified; M19.90 Unspecified osteoarthritis, unspecified site; E66.9 Obesity, unspecified; Z68.27 Body mass index [BMI] 27.0-27.9, adult; Z79.82 Long term (current) use of aspirin
CPT/HCPCS: 87426; 87804; 99213; G0463

== ENCOUNTER 2024-12-04 07:30 | Outpatient (CLI) | payer MEDICARE, SELFPAY ==
--- NOTE | ~2024-12-04 | MR_ITS ---
EXAMINATION: MR ankle RT wo con DATE: 12/04/2024 08:17 INDICATION: Right ankle posterior tibial tendinopathy with medial sided pain and swelling TECHNIQUE: Magnetic resonance imaging (MRI) of the right ankle was performed without intravenous cont rast. Sequences included sagittal, coronal, and axial proton-density weighted fast spin echo without and with fat saturation. COMPARISON: 08/17/2023 FINDINGS: Medial ankle ligaments: There is obscuration of the normally well-defined striated pattern of the deep deltoid ligament sugge sting mild scarring related to chronic sprain. There is thickening of the anterior superficial deltoi d ligament as well as thickening and mild increased signal of the superomedial component of the sprin g ligament complex consistent with additional scarring related to chronic sprain. Lateral ankle ligaments: The anterior and posterior inferior tibiofibular ligaments are normal. The anterior talofibular, calc aneofibular and posterior talofibular ligaments are normal. Tendons: Achilles tendon is normal. The peroneus longus and brevis tendons are normal. The tibialis anterior a nd extensor hallucis longus and extensor digitorum longus tendons are normal. There is small amount o f fluid consistent with mild tenosynovitis along the tibialis posterior tendon sheath. The tibialis p osterior, flexor digitorum longus and flexor hallucis longus tendons are normal. Plantar fascia: Moderate-sized plantar calcaneal spur at the origin of the normal plantar aponeurosis. No associated marrow or surrounding soft tissue edema to suggest plantar fasciitis. Bones/other: Mild osteoarthritis at the talonavicular attenuation with small focus of subarticular edema-like sign al change at the inferior head of the talus. Additional mild osteoarthritis at the tarsal metatarsal joints with mild subarticular cystlike change along the distal articular surface of the middle cuneif orm. Fluid: Physiologic amount fluid in the joint space. No other abnormal fluid collections. IMPRESSION: 1. Mild tibialis posterior tenosynovitis with normal appearing tendon. 2. Scarring consistent with chronic sprains of the deep and anterior superficial deltoid ligaments as well as the superomedial component of the spring ligament complex. 3. Mild polyarticular osteoarthritis at the talonavicular and tarsal metatarsal joints. Reviewed, dictated and finalized at location A. LAUNDERER IMPRESSION: 1. Mild tibialis posterior tenosynovitis with normal appearing tendon. 2. Scarring consistent with chronic sprains of the deep and anterior superficia l deltoid ligaments as well as the superomedial component of the spring ligamen t complex. 3. Mild polyarticular osteoarthritis at the talonavicular and tarsal metatarsal joints.
== END 2024-12-04 07:31 | disposition home or self-care (01) ==
LOC: MICIMG 07:31
PROVIDERS: PCP Family Medicine; Visit Provider Podiatrist Foot & Ankle Surgery
DX: M76.821 Posterior tibial tendinitis, right leg (principal); S93.421A Sprain of deltoid ligament of right ankle, initial encounter; M25.571 Pain in right ankle and joints of right foot; X58.XXXA Exposure to other specified factors, initial encounter
CPT/HCPCS: 73721

== ENCOUNTER 2025-05-07 08:39 | Outpatient (CLI) | payer MEDICARE, SELFPAY ==
--- OUTSIDE RECORDS SUMMARY | 2025-05-07 08:51 | XMS_ITS | Clinical Summary ---
Author Organization [facility] Address [address] [place] [address] Care Team Providers Care Wincher Name Role Phone Unavailable Primary Care Provider Unavailabl e Source Comments [facility],non-owned Affiliates and Associated Physician Practices is amultiple site organization consisting of ambulatory clinics and hospital sitesin [place], [place], [place] and [place]. This disclosure is being madepursuant to the Care Everywhere program and may not contain all informatio navailable regarding this patient. 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 STEEP TENDER Gender Identity Not on file Sexual Orientation Not on file Plan of Treatment Health Maintenance Due Date Last Done Comments COLOGUARD (AGES 45-75) - COL ON CA SCREENING 1953 COLON MONITORING 1953 COLONOSCOPY - COLON CA SCREENING 1953 CT COLONOGRAPHY - COLON CA SCREENING 1953 Colorectal Cancer Screening 1953 FIT - COLON CA SCREENING 1953 FLEX SIG - COLON CA SCREENING 1953 LIPID TESTING 1955 MEDICARE AWV 12 MONTHS 1953 HEPATITIS C SCREENING 10/02/1971 DTAP/TDAP/TD VACCINES (1 - Tdap) 1972 PNEUMOCOCCAL VACCINE 50+ (1 of 1 - PCV) 2003 ZOSTER VACCINE (1 of 2) 2003 COVID-19 VACCINE ( - 2023-2 5 season) 2024 DEPRESSION SCREENING 10/25/2024 INFLUENZA VACCINE (#1) 2025 Respiratory Syncytial Virus (RSV) Vaccine Pt: or over 60 yrs (1 - 1-dose 75+ series) 2028 HEPATITIS B VACCINE Aged Out No longe r eligible based on patient's age to complete this topic HIB VACCINE Aged Out No longer eligi ble based on patient's age to complete this topic HPV VACCINE Aged Out No longer eligi ble based on patient's age to complete this topic MENINGOCOCCAL (Group B) VACC INE SHARED DECISION-MAKING Aged Out No longer eligibl e based on patient's age to complete this topic MENINGOCOCCAL GROUPS A/C/Y/W VACCINE Aged Out No longer eligible b ased on patient's age to complete this topic [place] [address] MEDICARE [facility] MEDICARE MEDICARE MEDICARE MEDICARE MEDICARE MEDICARE
--- OUTSIDE RECORDS SUMMARY | 2025-05-07 08:51 | XMS_ITS | Encounter Summary ---
Author Organization [facility] Address [address] [place] [address] Care Team Providers Care Chemist Proteins Name Role Phone Unavailable Primary Care Provider Unavailabl e Encounter Details Date Type Department Care Team (Late st Contact Info) Description 02/15/2024 Lab Requisition [facility] - DermPath Lab [address], [address] [place] [address] Saumya Liriano MD 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 Gender Identity Not on file Sexual Orientation Not on file documented as of this encounter Plan of Treatment Not on file documented as of this encounter Procedures Procedure Name Priority Date/Time Associated Diagnosis Comments DERMATOPATHOLOGY Routine 02/15/2024 2:08 PM CDT documented in this encounter Results * DERMATOPATHOLOGY (02/15/2024 2:08 PM CDT) Case Report Dermatopathology Report Case: [id number] Authorizing Provider: Saumya Liriano MD Collected: 02/15/2024 02:08 PM Ordering Location: [facility] - Received: 02/17/2024 06:53 AM DermPath Lab Pathologist: Kirsten Leahy MD Specimen: Skin, right FA 11:42 AM CDT DERMATOPATHOLOGY LABORATORY Final Diagnosis Specimen A. SKIN, right FA: ACTINIC KERATOSIS, LICHENOID (L57.0) 11:42 AM CDT DERMATOPATHOLOGY LABORATORY at 1142 CDT Clinical History R/o BCC 11:42 AM CDT DERMATOPATHOLOGY LABORATORY Gross Description Specimen A: Received is one formalin filled container labeled with the patient's name and designated right FA. The specimen consists of a shave biopsy measuring 7x5x1 mm. Jar 0. 11:42 AM CDT DERMATOPATHOLOGY LABORATORY Microscopic Description Specimen A. SKIN, right FA: There is focal parakeratosis. The lower half of the epidermis shows disorderly maturation of keratinocytes with nuclear pleomorphism. The dermis shows a band-like, chronic inflammatory infiltrate with occasional apoptotic keratinocytes and some basal vacuolar alteration. 11:42 AM CDT DERMATOPATHOLOGY LABORATORY Disclaimer An external and internal positive and negative controls are appropriate for the histochemical, immunohistochemical and immunofluorescence stain(s) in this case (if any), except where stated explicitly. The performance characteristics of the stain(s) cited in this report were developed and its performance characteristic determined by the Dermatopathology Laboratory at [facility], directed by Dr. Gonzalez Gonsalez. These tests need not be, and therefore are not, approved by the [place] Food and Drug Administration. The tests are used for clinical purposes. Billing Codes Specimen Charges Stain Charges 85907 1 11:42 AM CDT DERMATOPATHOLOGY LABORATORY Embedded Images 11:42 AM CDT DERMATOPATHOLOGY LABORATORY Pathology/Cytolo gy TISSUE SPECIMEN FROM SKIN / Unknown 02/15/2024 2:08 PM CDT 02/17/2024 6:53 AM CDT us Saumya Liriano MD LAB - PATHOLOGY/CYTOLOGY ORD ERABLES Final Result DERMATOPATHOLOGY LABORATORY [facility] - Department of Dermatology [address], [address] [phone] documented in this encounter Visit Diagnoses Not on filedocumented in this encounter
--- OUTSIDE RECORDS SUMMARY | 2025-05-07 08:51 | XMS_ITS | Clinical Summary ---
Author Organization [facility] Address [address] [place] [id number] Care Team Providers Care General Repair Mechanic Name Role Phone Unavailable Primary Care Provider Unavailabl e Social History Tobacco Use Types Packs/Day Years Used Date Smoking Tobacco: Never Assessed Sex and Gender Information Value Date Recorded Sex Assigned at Not on file Legal Sex Male 11:14 AM CDT Gender Identity Not on file Sexual Orientation Not on file Plan of Treatment Health Maintenance Due Date Last Done Comments Hepatitis C Virus (HCV) Screening 1953 Cologuard 1998 Colonoscopy 1998 Colorectal Cancer Screening 1998 Immunochemical Fecal Occult Blood 1998 Zoster Immunization (2 of 2) 08/27/2020 07/02/2020 Pneumococcal Immunization (50+ years) (3 of 3 - PCV20 or PCV21) 10/21/2023 10/21/2018, 11/05/2017, 09/18/2014 SARS-COV-2 Immunization (3 - season) 2024 01/14/2021, 12/04/2020 Influenza Immunization (#1) 2025 092 10/2020, 07/02/2020, 07/22/2019, Additional history exists Respiratory Syncytial Virus (RSV) Immunization (Adult) (1 - 1-dose 75+ series) 2028 DTaP/Tdap/Td Immunization Discontinued 08/29/2020 TdaP Immunization Completed 08/29/2020 Hepatitis B Immunization Aged Out No longer eligible based on patient's age to complete this topic Human Papillomavirus (HPV) Immunization Aged Out No longer eligible based on patient's age to complete this topic Meningococcal Immunization (ACWY) Aged Out No longer eligible based on patient's age to complete this topic Rotavirus Immunization Aged Out No lo nger eligible based on patient's age to complete this topic
--- OUTSIDE RECORDS SUMMARY | 2025-05-07 08:51 | XMS_ITS | Continuity of Care Document ---
Author Name [facility] Organization [facility] Care Team Providers Care Proposal Consultant Name Role Phone [facility] Unavailable Unavailable Problems Combined list of problems from [facility] facilities. It does not include entries that were removed or entered in error. Problem Status Onset Date Problem Type Date of Resolution Comments Source Benign essential hypertension Active Condition [facility] BPH - benign prostatic hyperplasia Active Condition [facility] Chronic kidney disease stage 3A Active Condition [facility] COPD - Chronic obstructive pulmonary disease Active Condition [facility] HLD - Hyperlipidaemia Active Condition [facility] Sensorineural hearing loss of bilateral ears Active Condition [facility] Tinnitus Active Condition [facility] Diagnosis: ICD-10-CM Z46.1 Encounter for fitting and adjustment of hearing aid Active Diagnosis [facility] Diagnosis: ICD-10-CM H90.3 Sensorineural hearing loss, bilateral Active Diagnosis [facility] Diagnosis: ICD-10-CM Z00.01 Encounter for general adult medical exam w abnormal findings Active Diagnosis [facility] Allergies, Adverse Reactions, Alerts Combined list of allergies from [facility] facilities. It does not include entries that were removed or entered in error. Substance Category Reaction Severity Reaction type Status Date Reported Comments Source PAROXETINE Propensity to adverse reactions to drug (finding) Urticaria active [address] [place] [address] PENICILLIN Propensity to adverse reactions to drug (finding) Urticaria active [address] [place] [address] Vital Signs Combined list of inpatient and outpatient Vital Signs from [facility], ranging from 12 months to all on record, depending upon the facility. Vital Sign Value Date Comments Source SYSTOLIC BLOOD PRESSURE 149 05/15/2024 12:50:01 [facility] DIASTOLIC BLOOD PRESSURE 90 05/15/2024 12:50:01 [facility] PULSE OXIMETRY 96 05/15/2024 12:50:01 [facility] WEIGHT 209.8 05/15/2024 12:50:01 [facility] BMI 29 kg/m2 05/15/2024 12:50:01 [facility] PAIN 0 05/15/2024 12:50:01 [facility] HEIGHT 72 05/15/2024 12:50:01 [facility] TEMPERATURE 97.9 05/15/2024 12:50:01 [facility] PULSE 70 05/15/2024 12:50:01 [facility] RESPIRATION 16 05/15/2024 12:50:01 [facility] Encounters Combined list of: 1) Encounters from [facility] facilities going backup to the last 18 months, not all [place] inpatient encounters are included; 2) Encounters from the Department of [facility] facilities going backup to 280 months. Location Location Details Encounter Type Encounter Number Reason For Visit Attending Provider ADM Date DC Date Status Disposition Source [facility] Outpatient Encounter [id number] 05/15 [facility] Outpatient Encounter [id number] Diagnos is: ICD-10- CM Z00.01 Encount er for general adult medical exam w abnorma l finding s BERNARDINO,ABIG AIL C 05/15 [facility] REPAIR/MOD IFYING [id number] Diagnos is: ICD-10- CM H90.3 Sensori neural hearing loss, bilater ABRAHAN Clark 08/14 [facility] [id number] Diagnos is: ICD-10- CM Z46.1 Encount er for fitting and adjustm ent of hearing aid JEANNINE TURCIOSROULAJAYDEN Bazan 11/06 [facility] Social History Combined list of available smoking, tobacco, and other social history from [facility] and [facility] facilities. Social History Type Response Date Comment Sourc e Tobacco smoking status NHIS GA-TOBACCO FORMER USER 05/15/2024 [facility] History of tobacco [facility] Y[facility] OR MORE 05/15/2024 [facility] Plan of Care List of future care activities from Department [facility] facilities. Additional future care activities may be listed in the Assessment and Plan section. Date/Time Care Activity Care Activity Detail Facili ty 07/09/2025 AMBULATORY - MEDICINE AMBULATORY - MEDICI NE [facility]
--- OUTSIDE RECORDS SUMMARY | 2025-05-07 08:51 | XMS_ITS | Clinical Summary ---
Author Organization [facility] Address [address] [place] [address] Phone Care Team Providers Care Gathering Worker Name Role Phone Donaldo Bonner MD Primary Care Provider [phone] Allergies Active Allergy Reactions Criticality Noted Date Comments Penicillins Hives 05/29/2009 Medications Aspirin Buf,CaCarb-MgCar b-MgO, 81 MG tablet Take 81 mg by mouth daily Active MULTIPLE VITAMIN PO Take by mouth Active carvedilol (COREG) 12.5 MG tablet TAKE 1 TABLET BY MOUTH EVERY 12 HOURS WITH FOOD 01/15/2021 Active lisinopril (PRINIVIL) 20 MG tablet Take 20 mg by mouth 2 (two) times a day 12/12/2020 Active rosuvastatin (CRESTOR) 20 MG tablet Take 20 mg by mouth 1 (one) time each day 02/05/2021 Active Anoro Ellipta 62.5-25 MCG/INH aerosol powder INHALE 1 PUFF BY MOUTH ONCE DAILY 01/15/2021 Active zinc gluconate 50 MG tablet Take 50 mg by mouth 1 (one) time each day Active calcium gluconate 500 MG tablet Take 500 mg by mouth 1 (one) time each day Active ascorbic acid (VITAMIN C) 500 MG tablet Take 500 mg by mouth 1 (one) time each day Active Active Problems Problem Noted Date Diagnosed Date Chronic kidney disease stage 3A 02/17/2021 Hypertension 05/29/2009 Immunizations Immunization Administration Dates Next Due Influenza TIV (IM) 08/08/2021 Pneumococcal Conjugate 08/08/2021 Family History Medical History Relation Comments Heart failure Father Cancer Mother Kidney disease Neg Hx Relation Status Comments Father Mother Social History Tobacco Use Types Packs/Day Years Used Date Smoking Tobacco: Former Smokeless Tobacco: Never Alcohol Use Standard Drinks/Week Comments Yes 7 (1 standard drink = 0.6 oz pur e alcohol) Sex and Gender Information Value Date Recorded Sex Assigned at Not on file Legal Sex Male 9:21 AM MDT Gender Identity Not on file Sexual Orientation Not on file Last Filed Vital Signs Vital Sign Reading Time Taken Comments Blood Pressure 124/80 04/29/2022 9:38 AM CDT Pulse 72 04/29/2022 9:38 AM CDT Temperature 36.6 C (97.8 F) 04/29/2022 9:38 AM CDT Respiratory Rate - - Oxygen Saturation - - Inhaled Oxygen Concentration - - Weight 102 kg (224 lb) 04/29/2022 9:38 AM CDT Height 182.9 cm (6') 04/29/2022 9:38 AM CDT Body Mass Index 30.38 04/29/2022 9:38 AM CDT Plan of Treatment Health Maintenance Due Date Last Done Comments Pneumococcal PPSV23/PCV13 65 + Years / Low and Medium Risk (1 of 2 - PCV) 2003 Influenza Vaccine (#1) 2025 08/08/2021 Insurance MEDICARE MEDICARE [employer] Care Teams Gathering Worker Relationship Specialty Start Date End Date Donaldo Bonner MD [address] [place] [address] PCP - General Family Medicine 01/07/21
--- OUTSIDE RECORDS SUMMARY | 2025-05-07 08:51 | XMS_ITS | Encounter Summary ---
Author Organization [facility] Address [address] [facility] [place] [address] Care Team Providers Care Vacuum Plastic Forming Machine Operator Name Role Phone Unavailable Primary Care Provider Unavailabl e Encounter Details Date Type Department Care Team (Late st Contact Info) Description 05/02/2020 Lab Requisition [facility] DermPath Lab [address] [facility], [facility] [place] [id number] Saumya Liriano MD [address] [facility] [address] [place] [address] Social History Tobacco Use Types Packs/Day Years Used Date Smoking Tobacco: Never Assessed Sex and Gender Information Value Date Recorded Sex Assigned at Not on file 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 Gender Identity Not on file Sexual Orientation Not on file documented as of this encounter Plan of Treatment Not on file documented as of this encounter Procedures Procedure Name Priority Date/Time Associated Diagnosis Comments DERMATOPATHOLOGY Routine 05/01/2020 12:0 0 AM CDT documented in this encounter Results * DERMATOPATHOLOGY (05/01/2020 12:00 AM CDT) Case Report Dermatopathology Report Case: [id number] Authorizing Provider: Saumya Liriano MD Collected: 05/01/2020 12:00 AM Ordering Location: [facility] DermPath Lab Received: 05/02/2020 11:29 AM Pathologist: Thomas Gonsalez MD Specimens: A) - Skin, left knight B) - Skin, right calf 0 3:44 PM CDT DERMATOPATHOLOGY LABORATORY Final Diagnosis Specimen A. SKIN, left knight: BENIGN VERRUCOUS KERATOSIS, INFLAMED (L82.1) Specimen B. SKIN, right calf: ACANTHOSIS AND HYPERKERATOSIS (L98.8) (see microscopic description and comment) 0 3:44 PM CDT DERMATOPATHOLOGY LABORATORY at 1544 CDT Clinical History A: R/O ISK vs SCC. B: Favor DF. 0 3:44 PM CDT DERMATOPATHOLOGY LABORATORY Gross Description Specimen A: Received is one formalin filled container labeled with the patient's name and designated left knight. The specimen consists of a shave biopsy measuring 6y6w3ay. Jar 0. Specimen B: Received is one formalin filled container labeled with the patient's name and designated right calf. The specimen consists of a shave biopsy measuring 1p1l5qg. Jar 0. 0 3:44 PM CDT DERMATOPATHOLOGY LABORATORY Microscopic Description Specimen A. SKIN, left knight: Sections show hyperkeratosis, papillomatosis, hypergranulosis, and acanthosis. Inflammatory cells are present within the dermis. These histological findings can be seen in a verruca vulgaris or a seborrheic keratosis. Specimen B. SKIN, right calf: Sections show a superficial biopsy with acanthosis and hyperkeratosis. There is minimal dermis present for evaluation with scattered fibroblasts. COMMENT: These histological findings can be seen in a superficial biopsy of a dermatofibroma. 0 3:44 PM CDT DERMATOPATHOLOGY LABORATORY Disclaimer An external and internal positive and negative controls are appropriate for the histochemical, immunohistochemical and immunofluorescence stain(s) in this case (if any), except where stated explicitly. The performance characteristics of the stain(s) cited in this report were developed and its performance characteristic determined by the Dermatopathology Laboratory at [facility], directed by Dr. Gonzalez Gonsalez. These tests need not be, and therefore are not, approved by the [place] Food and Drug Administration. The tests are used for clinical purposes. Billing Codes Specimen Charges Stain Charges 19836 55868 1 1 0 3:44 PM CDT DERMATOPATHOLOGY LABORATORY Embedded Images 0 3:44 PM CDT DERMATOPATHOLOGY LABORATORY Pathology/Cytology TISSUE SPECIMEN FROM SKIN / Unknown 05/01/2020 05/02/2020 11:29 AM CDT Miscellaneous samples (specimen) TISSUE SPECIMEN FROM SKIN / Unknown 05/01/2020 05/02/2020 11:29 AM CDT us Saumya Liriano MD LAB - PATHOLOGY/CYTOLOGY ORD ERABLES Final Result DERMATOPATHOLOGY LABORATORY [facility] - Department of Dermatology Quality Control Inspector [facility] [address] [place] [address] documented in this encounter Visit Diagnoses Not on filedocumented in this encounter
--- NOTE | 2025-05-07 09:06 | ECG_ITS ---
Test Date: 2025-05-07 09:20:12 Measurements Intervals [place] Rate: 60 P: 55 CA: 138 QRS: -27 QRSD: 134 T: 31 QT: 371 QTc: 373 Interpretive Statements SINUS RHYTHM BORDERLINE LEFT AXIS DEVIATION [QRS AXIS < -20] RIGHT BUNDLE BRANCH BLOCK [120+ ms QRS DURATION, UPRIGHT V1, 40+ ms S IN I/aVL/V4/V5/V6] ABNORMAL ECG No previous ECG available for comparison Electronically Signed On 05-08-2025 09:51:11 CDT by Cedrick Stockton M.D.
[2025-05-07 10:02] LABS: Anion Gap 8 mmol/L (4-12); Blood Urea Nitrogen 21 mg/dL (9-20); Calcium 9.4 mg/dL (8.4-10.2); Carbon Dioxide 27 mmol/L (22-30); Chloride 104 mmol/L (98-107); Estimated Glomerular Filt Rate > 60; Glucose 102 mg/dL (65-110); Potassium 4.9 mmol/L (3.4-5.0); Sodium 139 mmol/L (137-145)
== END 2025-05-07 08:40 | disposition home or self-care (01) ==
LOC: ANHSURGERY 08:44
PROVIDERS: Anesthesiology; PCP Family Medicine; Visit Provider Podiatrist Foot & Ankle Surgery
DX: Z01.818 Encounter for other preprocedural examination (principal); R94.31 Abnormal electrocardiogram [ECG] [EKG]; N18.31 Chronic kidney disease, stage 3a
CPT/HCPCS: 36415; 80048; 93005

== ENCOUNTER 2025-05-11 00:22 | Day surgery (SDC) | payer MEDICARE, SELFPAY ==
[2025-05-03 14:29] VITALS: BMI 27.1
--- NOTE | 2025-05-03 14:59 | PC.NURSE ---
Report to the Outpatient Waiting Room, entrance under the green pavilion located off [facility], at time ___6:00AM___ on date ___05/11/25___. Planned Procedure Time: ____7:30AM___.? Time changes happen often and if your time is changed the preop area will call you the afternoon before. - You and your visitor will be asked to self-screen and do not enter if you have any COVID symptoms. Please call surgeon if you need to reschedule. - A mask is optional within the hospital at this time. Patients may have clear liquids (water, carbonated beverages, clear teas, apple juice) until 3 hours prior to surgery (4:30AM) with a maximum of 20 ounces. - No food from midnight until time of surgery and no smoking, or chewing tobacco (or any form of nicotine). No chewing gum, candy or mints. Take only the following medications with a SIP of water on the morning of surgery: CARVEDILOL, ANORO ELLIPTA INHALER DO NOT STOP ANY OF YOUR OTHER PRESCRIPTION MEDICATIONS PRIOR TO SURGERY EXCEPT THE FOLLOWING Hold all vitamins and supplements for 3 days per anesthesiologist.- LAST DOSE 05/07/25 Medications to discontinue per physician ____HOLD ASPIRIN 7 DAYS PRE-OP PER DR SMITH Date to take last dose 05/03/25 Please no make-up, nail armenian, hairspray, perfume, deodorant, or body powder the day of surgery.? No jewelry (including any body piercings) or valuables the day of surgery, leave them at home.? Please take a shower or bath the night before, or the morning of, surgery with an antibacterial soap.? Wear comfortable, loose fitting clothing.? - Jewelry must be removed prior to entering the operating room.? Rings and piercings that are not removed may be cut off. - The hospital will not accept responsibility for valuables.? - Please leave all valuables, including medications, at home the day of surgery. If you are going home after surgery, a licensed otr flatbed driver must drive you home.? - NO public transportation without another adult if you receive anesthesia. - We recommend that an adult stay with you for 24 hours following discharge. - We also recommend that you do not drive, make important decision, drink alcoholic beverages, or take any drugs that were not prescribed by your health care provider for at least 24 hours after your discharge time. Follow any additional instructions given to you from your surgeon. Telephone instructions given to ____PATIENT and asked if any additional questions and then verbalized understanding. Patient advised to call surgeon office or pre surgery nurse liaison [phone] if any additional questions.
[2025-05-11] VITALS (9 sets, daily range): BP systolic 123–148; BP diastolic 76–91; PULSE 54–68; RESP 14–20; TEMP 36.5–36.7; O2SAT 97–100
--- NOTE | ~2025-05-11 | XR_ITS ---
EXAMINATION: XR surgery orthopedic DATE: 05/11/2025 8:10 CDT INDICATION: RIGHT FOOT . TECHNIQUE: 4 fluoroscopic images of the right foot were obtained during right foot ORIF. Fluoroscopy exposure time was 23 seconds. Air Kerma 0.2449 mGy. DAP 4.1145 mGym2. COMPARISON: None FINDINGS/IMPRESSION: Fluoroscopic documentation of right foot ORIF. Please refer to the operative note for complete proced ural details. Reviewed, dictated and finalized at location K.
--- OUTSIDE RECORDS SUMMARY | 2025-05-11 00:24 | XMS_ITS | Clinical Summary ---
Author Organization [facility] Address [address] [place] [id number] Care Team Providers Care Systems Trainer Name Role Phone Unavailable Primary Care Provider [...]
--- OUTSIDE RECORDS SUMMARY | 2025-05-11 00:24 | XMS_ITS | Clinical Summary ---
Author Organization [facility] Address [address] [facility] [place] [address] Care Team Providers Care Seismic Survey Assistant Name Role Phone Unavailable Primary Care Provider Unavailabl e Source Comments [facility],non-owned Affiliates and Associated Physician Practices is amultiple site organization consisting of ambulatory clinics and hospital sitesin [place], [place], [place] and [place]. This disclosure is being madepursuant to the Care Everywhere program and may not contain all information available regarding this patient. Last updated 18.[facility] [employer] Social History Tobacco Use Types Packs/Day Years Used Date Smoking Tobacco: Never Assessed Sex and Gender Information Value Date Recorded Sex Assigned at Not on file Legal Sex Male 7:01 PM RN ADMISSIONS Gender Identity Not on file Sexual Orientation [...] patient's age to complete [place] [address] [facility] MEDICARE MEDICARE MEDICARE MEDICARE MEDICARE MEDICARE
--- OUTSIDE RECORDS SUMMARY | 2025-05-11 00:24 | XMS_ITS | Clinical Summary ---
Author Organization [facility] Address [address] [place] [address] Phone Care Team Providers Care Banquet Food Server Name Role Phone Donaldo Bonner MD Primary Care Provider [phone] Allergies Active Allergy Reactions Criticality Noted Date [...] 08/08/2021 Insurance MEDICARE MEDICARE [employer] Care Teams Banquet Food Server Relationship Specialty Start Date End Date Donaldo Bonner MD [address] [place] [address] PCP - General Family Medicine 01/07/21
--- OUTSIDE RECORDS SUMMARY | 2025-05-11 00:25 | XMS_ITS | Encounter Summary ---
Author Organization [facility] Address [address] [facility] [place] [address] Care Team Providers Care Customer Servicer Name Role Phone Unavailable Primary Care Provider Unavailabl e Encounter Details Date Type Department Care Team (Late st Contact Info) Description 02/15/2024 Lab Requisition [facility] - DermPath Lab [address] [facility], [facility] [place] [address] Saumya Liriano MD [address] 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 Gender Identity Not on file Sexual Orientation Not on file documented as of this encounter Plan of Treatment Not on file documented as of this encounter Procedures Procedure Name Priority Date/Time Associated Diagnosis Comments DERMATOPATHOLOGY Routine 02/15/2024 2:08 PM CDT documented in this encounter Results * DERMATOPATHOLOGY (02/15/2024 2:08 PM CDT) Case Report Dermatopathology Report Case: [id number] Authorizing Provider: Saumya Liriano MD Collected: 02/15/2024 02:08 PM Ordering Location: [facility] - Received: 02/17/2024 06:53 [...] characteristic determined by the Dermatopathology Laboratory at [facility], directed by Dr. Gonzalez Gonsalez. These tests need not be, and therefore are not, approved by the [place] Food and Drug Administration. The tests are used for clinical purposes. Billing Codes Specimen Charges Stain Charges 21962 1 11:42 AM CDT DERMATOPATHOLOGY LABORATORY Embedded Images 11:42 AM CDT DERMATOPATHOLOGY LABORATORY Pathology/Cytolo gy TISSUE SPECIMEN FROM SKIN / Unknown 02/15/2024 2:08 PM CDT 02/17/2024 6:53 AM CDT us Saumya Liriano MD LAB - PATHOLOGY/CYTOLOGY ORD ERABLES Final Result DERMATOPATHOLOGY LABORATORY [facility] - Department of Dermatology [address], [address] [phone] documented in this encounter Visit Diagnoses Not on filedocumented in this encounter
--- OUTSIDE RECORDS SUMMARY | 2025-05-11 00:25 | XMS_ITS | Encounter Summary ---
Author Organization [facility] Address [address] [place] [address] Care Team Providers Care Atomic Welder Name Role Phone Unavailable Primary Care Provider Unavailabl e Encounter Details Date Type Department Care Team (Late st Contact Info) Description 05/02/[address] [facility] DermPath Lab [address] 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 DermPath Lab Received: 05/02/2020 11:29 AM Pathologist: [...] specimen consists of a shave biopsy measuring 9p5v3gm. Jar 0. Specimen B: Received is one formalin filled container labeled with the patient's name and designated right calf. The specimen consists of a shave biopsy measuring 3d9u5pm. Jar 0. 0 3:44 PM CDT DERMATOPATHOLOGY [...] characteristic determined by the Dermatopathology Laboratory at [facility], directed by Dr. Gonzalez Gonsalez. These tests need not be, and therefore are not, approved by the [place] Food and Drug Administration. The tests are used for clinical purposes. Billing Codes Specimen Charges Stain Charges 71413 13062 1 1 0 3:44 PM CDT DERMATOPATHOLOGY LABORATORY Embedded Images 0 3:44 PM CDT DERMATOPATHOLOGY LABORATORY Pathology/Cytology TISSUE SPECIMEN FROM SKIN / Unknown 05/01/2020 05/02/2020 11:29 AM CDT Miscellaneous samples (specimen) TISSUE SPECIMEN FROM SKIN / Unknown 05/01/2020 05/02/2020 11:29 AM CDT us Saumya Liriano MD LAB - PATHOLOGY/CYTOLOGY ORD ERABLES Final Result DERMATOPATHOLOGY LABORATORY [facility] - Department of Dermatology [facility] [address] [place] [address] documented in this encounter Visit Diagnoses Not on filedocumented in this encounter
--- OUTSIDE RECORDS SUMMARY | 2025-05-11 00:25 | XMS_ITS | Continuity of Care Document ---
Author Name [facility] Organization [facility] Care Team Providers Care Traffic Investigator Name Role Phone [facility] Unavailable Unavailable Problems Combined list of problems from [facility] and [facility] facilities. It does not include entries that were removed or entered in error. Problem Status Onset Date Problem Type Date of Resolution Comments Source Benign essential hypertension Active Condition [facility] BPH - benign prostatic hyperplasia Active Condition [facility] Chronic kidney disease stage 3A Active Condition [facility] COPD - Chronic obstructive pulmonary disease Active Condition [facility] HLD - Hyperlipidaemia Active Condition [facility] Sensorineural hearing loss of bilateral ears Active Condition [facility] Tinnitus Active Condition [facility] Diagnosis: ICD-10-CM Z46.1 Encounter for fitting and adjustment of hearing aid Active Diagnosis [facility] Diagnosis: ICD-10-CM H90.3 Sensorineural hearing loss, bilateral Active Diagnosis [facility] Diagnosis: ICD-10-CM Z00.01 Encounter for general adult medical exam w abnormal findings Active Diagnosis [facility] Allergies, Adverse Reactions, Alerts Combined list of allergies from [facility] facilities. It does not include entries that were removed or entered in error. Substance Category Reaction Severity Reaction type Status Date Reported Comments Source PAROXETINE Propensity to adverse reactions to drug (finding) Urticaria active [address] [place] [address] PENICILLIN Propensity to adverse reactions to drug (finding) Urticaria active [address] [place] [address] Vital Signs Combined list of inpatient and outpatient Vital Signs from [facility] and [facility], ranging from 12 months to all on record, depending upon the facility. Vital Sign Value Date Comments Source SYSTOLIC BLOOD PRESSURE 149 05/15/2024 12:50:01 [facility] DIASTOLIC BLOOD PRESSURE 90 05/15/2024 12:50:01 [facility] PULSE OXIMETRY 96 05/15/2024 12:50:01 [facility] WEIGHT 209.8 05/15/2024 12:50:01 [facility] BMI 29 kg/m2 05/15/2024 12:50:01 [facility] PAIN 0 05/15/2024 12:50:01 [facility] HEIGHT 72 05/15/2024 12:50:01 [facility] TEMPERATURE 97.9 05/15/2024 12:50:01 [facility] PULSE 70 05/15/2024 12:50:01 [facility] RESPIRATION 16 05/15/2024 12:50:01 [facility] Encounters Combined list of: 1) Encounters from Department of [facility] facilities going backup to the last 18 months, not all [place] inpatient encounters are included; 2) Encounters from the Department of [facility] facilities going backup to 280 months. Location Location Details Encounter Type Encounter Number Reason For Visit Attending Provider ADM Date DC Date Status Disposition Source [facility] Outpatient Encounter [id number] 05/15 [facility] Outpatient Encounter [id number] Diagnos is: ICD-10- CM Z00.01 Encount er for general adult medical exam w abnorma l finding s BERNARDINO,ABIG AIL C 05/15 [facility]AR[facility] AID REPAIR/MOD IFYING [id number] Diagnos is: ICD-10- CM H90.3 Sensori neural hearing loss, bilater ABRAHAN Clark 08/14 [facility] [id number] Diagnos is: ICD-10- CM Z46.1 Encount er for fitting and adjustm ent of hearing aid JEANNINE TURCIOSROULAJAYDEN Bazan 11/06 [facility] Social History Combined list of available smoking, tobacco, and other social history from [facility] and [facility] facilities. Social History Type Response Date Comment Sourc e Tobacco smoking status NHIS CO-TOBACCO FORMER USER 05/15/2024 [facility] of [facility]20[facility] Plan of Care List of future care activities from Department [facility] facilities. Additional future care activities may be listed in the Assessment and Plan section. Date/Time Care Activity Care Activity Detail Facili ty 07/09/2025 AMBULATORY - MEDICINE AMBULATORY - MEDICI NE [facility]
[2025-05-11] MEDS: LACTATED RINGERS 1,000 ML 30 ML IV CONT ×2 (07:00→09:19)
[2025-05-11 07:01] LABS: INR 1.0; Prothrombin Time 13.5 Seconds (11.1-14.7)
[2025-05-11 07:02] LABS: Partial Thromboplastin Time 31.0 Seconds (22.3-36.8)
--- NOTE | 2025-05-11 07:10 | WPDHPUPDATE1 ---
History and Physical Update Update Date/Time: 05/11/25 07:10 History and Physical has been reviewed, including an updated exam of the patient. There are NO changes in the patient's condition. Risks, benefits, and alternatives have been discussed and questions answered. Patient agrees to proceed with procedure.
--- NOTE | 2025-05-11 07:12 | WPDANESEPPF ---
Anes - Initial Pre Proc Eval Procedure: Operation Date: 05/11/25 07:30 Proposed Procedures p Talonavicular Joint Arthrodesis Right Foot, Bone Marrow Aspirate of Right Calcaneus with Subchondroplasty of Talus, Tendo Achilles Lengthening Right Leg - Bill Clarke Jr., DPM Date/Time: 05/11/25 07:12 Surgeon: Bill Clarke Jr., KHOI Pre Op Diagnosis: arthritis rt foot, Gastroc-Soleus equinus Patient Data Age: 69 Gender: M Height: 1.83 m Weight: 93.1 kg Last Vital Signs Temp 36.5 C 05/11/25 06:45 Pulse 60 05/11/25 06:45 Resp 16 05/11/25 06:45 BP 129/83 05/11/25 06:45 Pulse Ox 98 05/11/25 06:45 O2 Del Method Room Air 05/11/25 06:45 Allergies Allergy/AdvReac Type Severity Reaction Status Date / Time paroxetine Allergy Mild RASH Verified 05/11/25 07:09 Penicillins Allergy Mild Hives Verified 05/11/25 07:09 Home Medications ?Medication ?Instructions ?Recorded ?Confirmed ?Type multivitamin 1 tablet PO DAILY 10/26/19 05/03/25 History ascorbic acid (vitamin C) 500 mg 500 mg PO DAILY 01/03/21 05/03/25 History tablet zinc 50 mg tablet 50 mg PO DAILY 07/18/21 05/03/25 History aspirin 81 mg tablet 81 mg PO DAILY 08/26/21 05/03/25 History levocetirizine 5 mg tablet (Xyzal) 5 mg PO DAILY 08/26/21 05/03/25 History calcium 600 mg (as 1 tablet PO DAILY 12/02/23 05/03/25 History carbonate)-vitamin D3 10 mcg (400 unit) tablet (Calcium 600 + D(3)) rosuvastatin 20 mg tablet See Rx Instructions .Route 01/19/25 05/03/25 Rx .COMPLEX #90 tabs carvedilol 12.5 mg tablet See Rx Instructions .Route 01/24/25 05/11/25 Rx .COMPLEX #240 tabs lisinopril 20 mg tablet 20 mg PO BID #180 tabs 02/08/25 05/03/25 Rx finasteride 5 mg tablet 5 mg PO DAILY 05/03/25 05/03/25 History umeclidinium 62.5 mcg-vilanterol See Rx Instructions .Route 05/10/25 Rx 25 mcg/actuation jayden buitrago .COMPLEX #60 ea inhalation (Anoro Ellipta) Laboratory Tests 05/11/25 06:28 PT 13.5 Seconds (11.1-14.7) INR 1.0 APTT 31.0 Seconds (22.3-36.8) Patient hx anesthesia problems: none Family hx anesthesia problems: none Results Review: All pre-operative results and documents have been reviewed as part of the pre-operative evaluation. [facility] Past Medical History Medical History Colon cancer screening IFG (impaired fasting glucose) Obesity (BMI 30-39.9) Osteoarthritis CKD (chronic kidney disease) Esophageal web Anxiety Chronic obstructive pulmonary disease Essential hypertension History of tobacco use Hyperlipidemia Pulmonary emphysema Recurrent major depressive disorder, in partial remission Surgical History Surgical History History of appendectomy Family History Family History Sibling Family history of multiple sclerosis Mother Family history of primary malignant neoplasm of liver Patient's mother is Father Family history of congestive heart failure Patient's father is Social History Social History Smoking packs per day: 1 Smoking cigarettes per day: 20.0 Years smoked: 26 Smoking pack-years: 26.00 Smoking status: Former smoker Tobacco type: cigarettes Second hand tobacco smoke exposure: No Smoking end date: 10/25/09 Alcohol intake: current Drinks per week: 4 Substance use: never Substance use type: does not use Do You Feel Safe in your Home?: Yes Lack of Transportation: No Lack of Food: Never True Current Housing: I Have Housing Concerned About Future Housing: No Difficulty Paying Gas/Electric Bills: No Difficulty Paying for Meds: No Currently Unemployed: No Education: High School Diploma/GED Difficulty w/ Childcare or Family Care: No Living arrangements: with family Gender identity (if verbalized by the patient): Male Spiritual care concerns: No Anes - Eval Final PreProcedure Day of Procedure 05/11/25 07:12 Patient weight: overweight Heart: regular rate and rhythm Lungs: clear to auscultation Airway: Mallampati scale class II Neurological: alert and oriented Last oral intake: >/= 8 hours ASA classification: III Emergent: no Anesthetic plan: proceed Anesthesia type and monitoring: general LMA and standard monitoring Results Review: All pre-operative results and documents have been reviewed as part of the pre-operative evaluation. Informed Consent: The patient's anesthetic plan and its attendant risks and benefits were discussed with the patient/family/POA. Questions were solicited and answers provided to the satisfaction of the patient/family/POA.
[2025-05-11] MEDS: ceFAZolin 2 GM in SODIUM CHLORIDE 0.9% IV 50 ML 100 ML IVPB (07:42)
--- NOTE | 2025-05-11 08:25 | SUR.OPER ---
ACD-A Anticoagulant Citrate Dextrose solution given to the field 30ml
--- NOTE | 2025-05-11 09:27 | W.PM.PROC2 ---
Procedure Note - Detailed Date of Procedure 05/11/25 Pre-op Diagnosis 1. Talartarsal instability right foot with arthritis 2. Gastroc-Soleus Equinus right foot 3. Bone Marrow Edema right foot Post-op Diagnosis Same Procedure Performed 1. Talar navicular Arthrodesis right foot 2. Tendo Achilles Lengthening right foot 3. Bone marrow aspirate of calcaneus with talus subchondroplasty injection right foot Surgeon Bill Clarke Jr., DPM Anesthesia General and Local Indications 1. Painful pes plano valgus deformity right foot 2. Recalcitrant bone marrow edema right talus Description of Procedure PROCEDURE IN DETAIL: Under mild sedation, the patient was brought into the operating room and placed on the operating table in the supine position. A pneumatic calf tourniquet was placed about the patient's right thigh. Following general anesthesia and a previous popliteal fossa block, the foot and ankle was then scrubbed, prepped, and draped in the usual aseptic manner. An Esmarch bandage was then used to exsanguinate the patient's foot and ankle and the pneumatic thigh tourniquet was then inflated to 300 mmHg. Surgery began in the following manner: I made 3 small 1cm incisions along the posterior right leg, just superior to the calcaneus extending proximally at 2cm intervals until adequate dorsiflexion, greater than 90 degrees were maintained.4.0 Prolene was used to reapproximate the skin with simple interrupted suture fashion technique. Attention was directed to the dorsal medial aspect of the talonavicular joint of the right foot where a 6 cm longitudinal incision was made in between the extensor hallucis longus tendon and the tibialis anterior tendon over the dorsal aspect of the talus and navicular bone. The dissection was continued deep down through the subcutaneous tissues using sharp and blunt dissection. All bleeders were ligated and cauterized as necessary. At this point, the talonavicular joint capsule was exposed and cut with a 15 blade. Next, 2 Steinmann pins were placed along the dorsal aspect of the talus and navicular bones and a joint distractor was used to open the talonavicular joint exposing the joint completely. Cartilage degeneration was noted. Curettes, curved osteotomes were used to to resect the remaining articular cartilage. A small osteotome was used to fenestrate the subchondral bone and then a 2.5 mm drill was used to fenestrate in order to promote fusion across the talonavicular joint. Next, a small 1cm incision was made along the lateral wall of the calcaneus. I used the Arthrex Bone Marrow aspirate kit and aspirated 60cc's of bone marrow blood. Next, I ran the aspirate into the Arthrex Concentrator. After the concentration was obtained I injected 5ccs into the neck of the talus visualized under fluroscopic guidance. Excellent position of the implants was noted on AP and lateral views. Next, I removed the joint distractor. The talonavicular joint was appropriately manipulated until the talar head was completely covered by the navicular. Two Arthrex 20mm by 20mm Dynanite Super Mx [place] were placed along the dorsal lateral aspect and dorsal medial aspect of the joint with excellent compression noted. Next, I packed 5ccs of Arthrex Allosync Pure DBM mixed with 5cc of Bone marrow aspirate. Next, the periosteal tissues were reapproximated and coapted. The subcutaneous medial structures were reapproximated and coapted with 2-0 Vicryl and the skin was reapproximated with 4-0 Monocryl. Upon completion of the procedure, the incision was dressed with Steri-Strips [id number], Adaptic, 4x4s, Kerlix, and Coban. The pneumatic thigh tourniquet was then deflated and a prompt hyperemic response was noted to all digits of the affected foot. A posterior splint was then applied to the affected lower extremity. The patient did very well with the procedure and the anesthesia. He was transferred to the recovery room with vital signs stable and vascular status intact to all toes of the right foot. Following a period of postoperative monitoring, the patient will be discharged home on the following written and oral postoperative instructions: 1. Keep the dressing clean, dry, and intact. Use a cast protector bag with showering. 2. The patient to be strictly nonweightbearing with knee scooter, crutches or walker. 3. Patient should ice and elevate the foot when at rest for the next 3 days. 4. Patient should be on bed rest for 3 days with bathroom privileges only, utilizing her knee scooter at all times. The patient should contact Dr. Clarke for all postop care if any problems arise. Prescriptions were written for pain medication Percocet 5/325 dispensed 40 to be taken 1 p.o. q.4-6 hours as needed for severe pain. Furthermore Xarelto 10 mg was also prescribed to be taken 1 p.o. daily starting 24 hours after surgery to prevent DVT followed by one 325 mg aspirin until walking is re-initiated, which will approximately be 8 weeks postop. Implants Two Arthrex Dynanite 20mm by 20mm MX dima 5cc of Arthrex Allosynmc DMB Arthrex Bone Marrow Aspirate Kit Estimated Blood Loss 20 Drains No Packing No Pathology None sent Complications No immediate complications Condition Stable Disposition Same day
--- NOTE | 2025-05-11 09:28 | WPDANESPNB ---
Anes - Peripheral Nerve Block Date/Time: 05/11/25 09:28 I have discussed with the patient/family/POA the placement of a peripheral nerve block for post-operative pain management, including associated risks, benefits, complications, and side effects. Alternative methods of post-operative analgesia were detailed. Questions were solicited and answers provided to the satisfaction of the patient/family/POA. Time-Out: A pre-procedural Time-Out was completed immediately before starting the procedure and confirmed: Patient Identification, Site, Procedure, Patient Position and the Availability of Requisite Equipment. Clinical Indications: Acute post-operative pain management requested by the operative surgeon. Nerve Block Insertion Note Anes-nerve block: posterior fossa sciatic right Patient position: supine Skin prep: chlorhexidine Needle: 22 gauge, stimulating, insulated echogenic needle. Needle length: 120 mm Technique: nerve stimulation lost at (mA) (0.4) Injectate: bupivacaine 0.5% with epi 5 mcg/ml (30cc no epi) and dexamethasone (mg) (8) Observations: tolerated well Complications: none Procedure start time:: 714 Procedure end time:: 721
== END 2025-05-11 11:27 | disposition home or self-care (01) ==
PROVIDERS: Anesthesiology; PCP Family Medicine; Visit Provider Podiatrist Foot & Ankle Surgery
PROC: (CPT 28750; principal; 2025-05-11 07:30)
DX: M25.374 Other instability, right foot (principal); M21.6X1 Other acquired deformities of right foot; R60.9 Edema, unspecified; M24.474 Recurrent dislocation, right foot; M76.821 Posterior tibial tendinitis, right leg; M19.071 Primary osteoarthritis, right ankle and foot; G89.18 Other acute postprocedural pain; Z87.891 Personal history of nicotine dependence
CPT/HCPCS: 28740; 27685; 64445; 36415; 85610; 85730; 99199; J0690; C1713; J1100; J1644; J2003; J2250; J2405; J2704; J3010; J7120

== ENCOUNTER 2025-08-01 14:34 | Outpatient (CLI) | payer MEDICARE, SELFPAY ==
--- NOTE | ~2025-08-01 | US_ITS ---
EXAMINATION: US venous doppler LE DATE: 08/01/2025 15:21 INDICATION: Right lower limb pain and swelling TECHNIQUE: Grayscale ultrasound images without and with compression and Doppler ultrasound images of the right lower extremity veins were obtained. COMPARISON: None. FINDINGS: The visualized portions of right common femoral vein, profunda (deep) femoral vein, femoral vein, popliteal vein, peroneal trunk, posterior tibial veins, peroneal veins, gastrocnemius vein and greater saphenous vein outflow are patent. IMPRESSION: 1. No deep venous thrombosis in the right lower limb. Reviewed, dictated and finalized at location A.
== END 2025-08-01 14:35 | disposition home or self-care (01) ==
PROVIDERS: PCP Family Medicine; Visit Provider Podiatrist Foot & Ankle Surgery
DX: M79.89 Other specified soft tissue disorders (principal); M79.661 Pain in right lower leg
CPT/HCPCS: 93971